=== PATIENT | female | born 1990 | race Caucasian/White ===

== ENCOUNTER 2017-06-18 17:21 | Emergency (ER) | payer MEDICAID ==
[2017-06-18 17:43] VITALS: BP 117/93
--- NOTE | 2017-06-18 18:09 | EDM.PDOC ---
ED HPI GENERAL MEDICAL PROBLEM - General Chief Complaint: Cardiovascular Problem Stated Complaint: HIGH BLOOD SUGAR/CHEST PAIN Time Seen by Provider: 06/18/17 17:34 Source of Information: Reports: Patient, RN Notes Reviewed History Limitations: Reports: No Limitations - History of Present Illness INITIAL COMMENTS - FREE TEXT/NARRATIVE: The patient states that she has been experiencing episodes of lightheadedness, sharp chest pain, shortness of breath, whole-body tingling, palpitations, and nausea and vomiting. The episodes last approximately 2 minutes, and she will have 5-6 episodes per day, over the past 3 or 4 days. At present, she is asymptomatic. The patient reports that she has a history of diabetes and depression/anxiety, but that she has not taken any medications for the past 2 months. She is concerned that her symptoms are due to hyperglycemia. The patient's PCP is Martha Main, whom the patient last saw about 2 months ago, however, the patient states that she is looking to change providers. 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 Psychiatric History: Reports: Anxiety, Depression Endocrine/Metabolic History: Reports: Diabetes, Type II - Past Surgical History HEENT Surgical History: Reports: Oral Surgery ([place] teeth extraction) Female Surgical History: Reports: Section (x 1) Social & Family History - Family History Family Medical History: Noncontributory - Tobacco Use Smoking Status *Q: Current Every Day Smoker Years of Tobacco use: 10 Packs/Tins Daily: 0.1 - Alcohol Use Alcohol Use History: Yes Alcohol Use Frequency: Rarely - Recreational Drug Use Recreational Drug Use: No - Living Situation & Occupation Living situation: Reports: (), with Family Occupation: Unemployed ED ROS GENERAL - Review of Systems Review Of Systems: See Below Constitutional: Reports: No Symptoms HEENT: Reports: No Symptoms Respiratory: Reports: Cough Cardiovascular: Reports: No Symptoms Endocrine: Reports: No Symptoms GI/Abdominal: Reports: No Symptoms : Reports: No Symptoms Musculoskeletal: Reports: No Symptoms Skin: Reports: No Symptoms Neurological: Reports: No Symptoms Psychiatric: Reports: No Symptoms Hematologic/Lymphatic: Reports: No Symptoms Immunologic: Reports: No Symptoms ED EXAM, GENERAL - Physical Exam Exam: See Below Exam Limited By: No Limitations General Appearance: Alert, WD/WN, No Apparent Distress Eye Exam: Bilateral Eye: Normal Inspection Ears: Normal External Exam, Hearing Grossly Normal Nose: Normal Inspection, No Blood Throat/Mouth: Normal Inspection, Normal Lips, Normal Voice, No Airway Compromise Head: Atraumatic, Normocephalic Neck: Normal Inspection, Full Range of Motion Respiratory/Chest: No Respiratory Distress, Lungs Clear, Normal Breath Sounds, No Accessory Muscle Use Cardiovascular: Normal Peripheral Pulses, Regular Rate, Rhythm, No Gallop, No JVD, No Murmur, No Rub Peripheral Pulses: 4+: Radial (L), Radial (R) GI/Abdominal: Normal Bowel Sounds, Soft, Non-Tender, No Organomegaly, No Distention, No Abnormal Bruit, No Mass (Female) Exam: Deferred Rectal (Female) Exam: Deferred Back Exam: Normal Inspection, Full Range of Motion, NT Extremities: Normal Inspection, Normal Range of Motion, No Pedal Edema, Normal Capillary Refill Neurological: Alert, Oriented, Normal Cognition, No Motor/Sensory Deficits Psychiatric: Normal Affect Skin Exam: Warm, Dry, Intact, Normal Color, No Rash Lymphatic: No Adenopathy Course - Vital Signs Last Recorded V/S: Last Vital Signs Temp 36.4 C 06/18/17 17:33 Pulse 109 H 06/18/17 17:33 Resp 29 H 06/18/17 17:33 BP 117/93 H 06/18/17 17:33 Pulse Ox 96 06/18/17 17:33 - Orders/Labs/Meds Labs: Laboratory Tests 06/18/17 Range/Units 17:37 POC Glucose 286 H (70-105) mg/dL - Re-Assessments/Exams Free Text/Narrative Re-Assessment/Exam: 06/18/17 18:02 By history, the patient's symptoms are consistent with intermittent hyperventilation syndrome, however, the patient is asymptomatic at this time. The patient was under the impression that her symptoms were due to hyperglycemia , however, she states that her blood sugar usually runs in the high 200s (Accu- Chek in the ED was 286), therefore it is highly unlikely that this is responsible for her symptoms. Additionally, the patient has been told in the past that her symptoms are due to diabetic neuropathy, however, the description and intermittent nature of her symptoms, along with the relatively short duration of her diabetes, speak against this. I offered to perform a workup to make sure that there was no other etiology, such as a PE, however, the patient declined. The patient has not taken any of her medications, including diabetes and depression/anxiety medications, for the past 2 months, which would increase the likelihood of the patient having hyperventilation syndrome. I offered to prescribe some metformin for her, until she is able to fill her current prescriptions, however, the patient declined that, as well. I will refer her to Dr. Walsh. Departure - Departure Time of Disposition: 18:06 Disposition: Home, Self-Care 01 Condition: Good Clinical Impression: Hyperventilation syndrome, Hyperglycemia due to type 2 diabetes mellitus Instructions: Hyperventilation, Hyperglycemia, [id number] Referrals: Moses Walsh [Physician] - Forms: ED Department Discharge Additional Instructions: You were seen in the emergency room for intermittent symptoms of lightheadedness , chest pain, shortness of breath, whole-body tingling, palpitations, nausea, and vomiting. As you were not having any symptoms while in the ED, a diagnosis is difficult to make, however, your symptoms are MOST LIKELY due to hyperventilation syndrome related to your not having taken your anxiety medications for the past couple of months. Your blood sugar was found to be 286 in the ER. We recommend you follow-up with Dr. Walsh in the clinic for further evaluation and treatment. If any other problems, please do not hesitate to return to the ER.
== END 2017-06-18 18:25 | disposition home or self-care (01) ==
LOC: JD.ED 17:21
DX: F45.8 Other somatoform disorders (principal); E11.65 Type 2 diabetes mellitus with hyperglycemia; F41.9 Anxiety disorder, unspecified; F32.9 Major depressive disorder, single episode, unspecified; E11.9 Type 2 diabetes mellitus without complications; F17.210 Nicotine dependence, cigarettes, uncomplicated; Z79.899 Other long term (current) drug therapy
CPT/HCPCS: 82962; 99283; 99284

== ENCOUNTER 2017-09-11 17:58 | Emergency (ER) | payer MEDICAID ==
[2017-09-11 19:09] VITALS: BP 124/92
--- NOTE | 2017-09-11 19:17 | EDM.PDOC ---
ED HPI GENERAL MEDICAL PROBLEM - General Chief Complaint: Diabetic Complaint Stated Complaint: POSS STAPH INFECTION Time Seen by Provider: 09/11/17 19:17 Source of Information: Reports: Patient History Limitations: Reports: No Limitations - History of Present Illness INITIAL COMMENTS - FREE TEXT/NARRATIVE: Patient is a 26-year-old female who presents to the ED complaining of numerous complaints at this time. This includes #1 boil to the right buttocks size of a walnut that is progressively getting bigger in size. 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 In addition she's been complaining of elevated blood sugars in the 500s. She is a type 2 diabetic on metformin thousand milligrams 3 times a day. Patient reports taking it 2 times a day since it makes her feel sick. She does have some history of diarrhea with taking this medication. States last night also started passing some large blood clots from her vagina. States there has been about 6 large ones. She did change her tampon every half hour to 45 minutes. She is mildly dizzy, dry mouth, experiencing some mild abdominal cramping to the right lower and periumbilical region. She denies being but notes her menstrual cycle has been irregular with not taking the Cozaar or insulin. Due to insurance issues she has not been on Victoza or any type of insulin. Denies any fever, chest pain, shows breath, dysuria, presyncope/syncopal episodes, or any additional complaints. Abdomen Pain Score (Numeric/FACES): 7 right buttock Pain Score (Numeric/FACES): 4 - Related Data Allergies Allergy/AdvReac Type Severity Reaction Status Date / Time No Known Allergies Allergy Verified 06/18/17 17:43 Home Meds: Home Meds Blood Sugar Diagnostic [Glucose Test Strip] 1 each MC BID #20 strip 03/11/16 [Rx ] LORazepam [Ativan] 0.5 mg PO DAILY 06/18/17 [History] PARoxetine [Paxil] 20 mg PO DAILY 06/18/17 [History] Acetaminophen/HYDROcodone [[place] 325-5 MG] 1 tab PO Q6H PRN #6 tablet 09/11/17 [ Rx] Doxycycline [Vibramycin] 100 mg PO BID #20 cap 09/11/17 [Rx] Insulin Glarg,Human.Rec.Analog [LantUS Solostar] 15 units SUBCUT DAILY #1 pen [Rx] metFORMIN [Glucophage XR] 1,000 mg PO BID 09/11/17 [History] metroNIDAZOLE [Flagyl] 500 mg PO TID 09/11/17 [History] Past Medical History - Past Health History Medical/Surgical History: Denies 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: Psychiatric History: Reports: Anxiety, Depression Endocrine/Metabolic History: Reports: Diabetes, Type II Other Endocrine/Metabolic History: seen in ED yesterday for High blood glucose Dermatologic History: Reports: Other (See Below) Other Dermatologic History: boils/cysts - Infectious Disease History Infectious Disease History: Reports: MRSA - Past Surgical History HEENT Surgical History: Reports: Oral Surgery Female Surgical History: Reports: Section Social & Family History - Family History Family Medical History: Noncontributory - Tobacco Use Smoking Status *Q: Current Every Day Smoker Years of Tobacco use: 10 Packs/Tins Daily: 0.2 Used Tobacco, but Quit: No Second Hand Smoke Exposure: No - Caffeine Use Caffeine Use: Reports: Soda Other Caffeine Use: uses diet soda - Recreational Drug Use Recreational Drug Use: No - Living Situation & Occupation Living situation: Reports: (), with Family Occupation: Unemployed ED ROS GENERAL - Review of Systems Review Of Systems: ROS reveals no pertinent complaints other than HPI. ED EXAM GENERAL NO PERIP PULSE - Physical Exam Exam: See Below Exam Limited By: No Limitations General Appearance: Alert, WD/WN, No Apparent Distress Ears: Hearing Grossly Normal Nose: Normal Inspection Throat/Mouth: Normal Voice, No Airway Compromise, Other (Mouth is dry) Head: Atraumatic, Normocephalic Neck: Normal Inspection, Supple Respiratory/Chest: No Respiratory Distress, Lungs Clear, Normal Breath Sounds, No Accessory Muscle Use Cardiovascular: Normal Peripheral Pulses, Regular Rate, Rhythm GI/Abdominal: Normal Bowel Sounds, Soft, No Organomegaly, No Distention, Tender (To the periumbilical region. Negative Ortega and McBurney sign.) Extremities: Normal Inspection, Non-Tender, No Pedal Edema, Normal Capillary Refill Neurological: Alert, Oriented, CN II-XII Intact, No Motor/Sensory Deficits Psychiatric: Normal Affect, Normal Mood Skin Exam: Warm, Dry, Other (Approximate 3 cm x 2 and half centimeter boil to the right Botox cheek with pain on palpation or increased warmth noted. No drainage present.) ED I&D PROCEDURES - I&D Site: Right buttocks 3 cm x 2.5 cm indurated area Skin prep: Sterile Drape Local anesthesia - Lidocaine (Xylocaine): 1% Plain (6 mL) Area Incised With: 11 Blade Drainage: Bloody, Small Amount Probed to Break Up Loculations: Yes Packed With: None Sterile Dressinx4(s) Complications: No Course - Vital Signs Last Recorded V/S: Last Vital Signs Temp 98.8 F 09/11/17 19:07 Pulse 104 H 09/11/17 19:07 Resp 20 09/11/17 19:07 BP 124/92 H 09/11/17 19:07 Pulse Ox 96 09/11/17 19:07 - Orders/Labs/Meds Labs: Laboratory Tests 09/11/17 09/11/17 09/11/17 Range/Units 20:00 20:10 20:10 WBC 12.50 H (3.98-10.04) K/mm3 RBC 5.27 H (3.98-5.22) M/mm3 Hgb 14.3 (11.2-15.7) gm/L Hct 41.2 (34.1-44.9) % MCV 78.2 L (79.4-94.8) fl MCH 27.1 (25.6-32.2) pg MCHC 34.7 (32.2-35.5) g/dl RDW Std Deviation 37.8 (36.4-46.3) fL Plt Count 207 (182-369) K/mm3 MPV 11.7 (9.4-12.3) fl Neut % (Auto) 65.6 (34.0-71.1) % Lymph % (Auto) 27.6 (19.3-51.7) % [place] % (Auto) 5.3 (4.7-12.5) % Eos % (Auto) 1.1 (0.7-5.8) Baso % (Auto) 0.2 (0.1-1.2) % Neut # (Auto) 8.20 H (1.56-6.13) K/mm3 Lymph # (Auto) 3.45 (1.18-3.74) K/mm3 [place] # (Auto) 0.66 H (0.24-0.36) K/mm3 Eos # (Auto) 0.14 (0.04-0.36) K/mm3 Baso # (Auto) 0.02 (0.01-0.08) K/mm3 Sodium 134 L (136-145) mEq/L Potassium 3.5 (3.5-5.1) mEq/L Chloride 101 (98-107) mEq/L Carbon Dioxide 24 (21-32) mEq/L Anion Gap 12.5 (5-15) BUN 7 (7-18) mg/dL Creatinine 0.8 (0.55-1.02) mg/dL Est Cr Clr Drug Dosing 113.21 mL/min Estimated GFR (MDRD) > 60 (>60) mL/min BUN/Creatinine Ratio 8.8 L (14-18) Glucose 334 H (74-106) mg/dL POC Glucose 335 H (70-105) mg/dL Calcium 9.1 (8.5-10.1) mg/dL Total Bilirubin 0.5 (0.2-1.0) mg/dL AST 10 L (15-37) U/L ALT 19 (14-59) U/L Alkaline Phosphatase 111 (46-116) U/L C-Reactive Protein 6.4 H* (<1.0) mg/dL Total Protein 7.7 (6.4-8.2) g/dl Albumin 3.5 (3.4-5.0) g/dl Globulin 4.2 gm/dL Albumin/Globulin Ratio 0.8 L (1-2) TSH 3rd Generation 0.938 (0.358-3.74) uIU/mL HCG, Qual (NEGATIVE) Urine Color (Yellow) Urine Appearance (Clear) Urine pH (5.0-8.0) Ur Specific [place] (1.005-1.030) Urine Protein (Negative) Urine Glucose (UA) (Negative) Urine Ketones (Negative) Urine Occult Blood (Negative) Urine Nitrite (Negative) Urine Bilirubin (Negative) Urine Urobilinogen (0.2-1.0) Ur Leukocyte Esterase (Negative) Urine RBC (0-5) /hpf Urine WBC (0-5) /hpf Ur Epithelial Cells (0-5) /hpf Urine Bacteria (FEW) /hpf Urine Mucus (FEW) /hpf Blood Type 09/11/17 09/11/17 09/11/17 Range/Units 20:10 20:10 22:35 WBC (3.98-10.04) K/mm3 RBC (3.98-5.22) M/mm3 Hgb (11.2-15.7) gm/L Hct (34.1-44.9) % MCV (79.4-94.8) fl MCH (25.6-32.2) pg MCHC (32.2-35.5) g/dl RDW Std Deviation (36.4-46.3) fL Plt Count (182-369) K/mm3 MPV (9.4-12.3) fl Neut % (Auto) (34.0-71.1) % Lymph % (Auto) (19.3-51.7) % [place] % (Auto) (4.7-12.5) % Eos % (Auto) (0.7-5.8) Baso % (Auto) (0.1-1.2) % Neut # (Auto) (1.56-6.13) K/mm3 Lymph # (Auto) (1.18-3.74) K/mm3 [place] # (Auto) (0.24-0.36) K/mm3 Eos # (Auto) (0.04-0.36) K/mm3 Baso # (Auto) (0.01-0.08) K/mm3 Sodium (136-145) mEq/L Potassium (3.5-5.1) mEq/L Chloride (98-107) mEq/L Carbon Dioxide (21-32) mEq/L Anion Gap (5-15) BUN (7-18) mg/dL Creatinine (0.55-1.02) mg/dL Est Cr Clr Drug Dosing mL/min Estimated GFR (MDRD) (>60) mL/min BUN/Creatinine Ratio (14-18) Glucose (74-106) mg/dL POC Glucose (70-105) mg/dL Calcium (8.5-10.1) mg/dL Total Bilirubin (0.2-1.0) mg/dL AST (15-37) U/L ALT (14-59) U/L Alkaline Phosphatase (46-116) U/L C-Reactive Protein (<1.0) mg/dL Total Protein (6.4-8.2) g/dl Albumin (3.4-5.0) g/dl Globulin gm/dL Albumin/Globulin Ratio (1-2) TSH 3rd Generation (0.358-3.74) uIU/mL HCG, Qual Negative (NEGATIVE) Urine Color Light yellow (Yellow) Urine Appearance Slt cloudy H (Clear) Urine pH 5.5 (5.0-8.0) Ur Specific [place] 1.025 (1.005-1.030) Urine Protein Negative (Negative) Urine Glucose (UA) 2+ H (Negative) Urine Ketones 1+ H (Negative) Urine Occult Blood Trace-lysed H (Negative) Urine Nitrite Negative (Negative) Urine Bilirubin Negative (Negative) Urine Urobilinogen 0.2 (0.2-1.0) Ur Leukocyte Esterase Negative (Negative) Urine RBC 0-5 (0-5) /hpf Urine WBC 0-5 (0-5) /hpf Ur Epithelial Cells 0-5 (0-5) /hpf Urine Bacteria Few (FEW) /hpf Urine Mucus Not seen (FEW) /hpf Blood Type A POSITIVE Meds: Medications Discontinued Medications Generic Name Dose Route Start Last Admin Trade Name Freq PRN Reason Stop Dose Admin Doxycycline Hyclate 200 mg 09/11/17 22:50 09/11/17 23:30 Vibramycin PO 09/11/17 22:51 Not Given ONETIME ONE Hydromorphone HCl 0.5 mg 09/11/17 19:43 09/11/17 20:06 Dilaudid IVPUSH 09/11/17 19:44 0.5 mg ONETIME ONE Administration Sodium Chloride 2,000 mls @ 999 mls/hr 09/11/17 19:43 09/11/17 20:05 Normal Saline IV 09/11/17 21:43 999 mls/hr ONETIME ONE Administration Lidocaine HCl 10 ml 09/11/17 19:43 09/11/17 20:06 Xylocaine 1% INJECT 09/11/17 19:44 10 ml ONETIME ONE Administration Ondansetron HCl 4 mg 09/11/17 19:43 09/11/17 20:06 Zofran IVPUSH 09/11/17 19:44 4 mg ONETIME ONE Administration Sodium Chloride 10 ml 09/11/17 19:20 09/11/17 20:00 Saline Flush FLUSH 10 ml ASDIRECTED PRN Administration Keep Vein Open - Re-Assessments/Exams Free Text/Narrative Re-Assessment/Exam: IV established with normal saline 999 mils per hour, Dilaudid 0.5 mg IVP, and Zofran 4 mg IVP. Initial labs and studies include CBC, chem 14, hCG, TSH, UA, CRP, ABO type and screen, and orthostatic vitals. 09/11/17 20:13 BS 335 Labs reviewed: NA 134, k 3.5, AG 12.5, Cr 0.8, glucose 334, CRP 6.4, TSH 0.938, HCG neg, WBC 12.5, HGB 14.3, platelet count 207, neutrophil percentage is 65.6, neutrophil number is 8.20. HCG negative. UA has not been collected yet. Per patient vaginal bleeding has resolved. 221 Abscess to the right buttocks I&D with no complications. Cultures for both aerobic and anaerobic obtained. Ordered doxycycline 200mg PO. Patient requesting prescription for lantus 15 units at . Patient states she has insurance and PCP has not prescribed LA/SA. She states PCP is waiting 3 months with only metformin used so victoza will be covered. Patient states she is feeling better with the IV fluids. She is ready be discharged home. Abdominal discomfort has subsided. UA results are pending. Will discharge patient home with instructions as documented. She'll be notified if UTI present. 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 supervisor insulin use: without ferry terminal supervisor use Qualified Code(s): E11.628 - Type 2 diabetes mellitus with other skin complications Diabetes type 2, uncontrolled Qualifiers: Diabetes mellitus complication status: without complication Diabetes mellitus halfway insulin use: without ferry terminal supervisor use Qualified Code(s): E11.65 - Type 2 diabetes mellitus with hyperglycemia - Discharge Information Prescriptions: Acetaminophen/HYDROcodone [[place] 325-5 MG] 1 tab PO Q6H PRN #6 tablet PRN Reason: Pain (Severe 7-10) Doxycycline [Vibramycin] 100 mg PO BID #20 cap Insulin Glarg,Human.Rec.Analog [LantUS Solostar] 15 units SUBCUT DAILY #1 pen Instructions: Type 2 Diabetes Mellitus, Adult, [id number] Referrals: Moses Walsh [Physician] - Forms: ED Department Discharge Additional Instructions: As discussed cultures of the wound have been obtained. Will have you take doxycycline 100 mg twice a day for 10 days.You will be notified if the bacteria growing is not susceptible to the antibiotic currently on. Cleanse site twice daily with soap and water, pat dry, reapply dressing. If dressing becomes saturated change it. Wound will have to heal by secondary intentions. That is from the inside out. Take Tylenol and ibuprofen in alternating fashion for pain. For severe pain take [place] one tab every 6 [address] as needed[address] Do not drive while taking the [place]. Blood sugars were in the 300s upon evaluation to the ED. As known your blood sugars are not well controlled. Continue taking the metformin as prescribed. Will also add Lantus 15 units at at bedtime. Monitor blood sugars 4 times a day keeping a daily log. Eat a diabetic friendly diet. Push the fluids. In relation to the vaginal bleeding you're experiencing that has since resolved continue to monitor if you experience worsening bleeding with dizziness or pain please return back to ED. Follow-up with a primary care provider at [facility] and [place] for further evaluation and treatment the first part of this week. Call and make an appt.
[2017-09-11] MEDS ORDERED: Sodium Chloride 0.9% 10 ML Syringe FLUSH PRN (19:20)
[2017-09-11] MEDS ORDERED: Sodium Chloride 0.9% 2,000 ML IV ONE (19:43)
[2017-09-11] MEDS ORDERED: Ondansetron 4 MG/2 ML SDV IVPUSH ONE (19:43)
[2017-09-11] MEDS ORDERED: Lidocaine 1% 10 ML MDV INJECT ONE (19:43)
[2017-09-11] MEDS ORDERED: HYDROmorphone 0.5 MG/0.5 ML Syringe IVPUSH ONE (19:43)
[2017-09-11] MEDS ORDERED: Doxycycline 100 MG Cap PO ONE (22:50)
== END 2017-09-11 23:20 | disposition home or self-care (01) ==
LOC: JD.ED 17:58
DX: L02.31 Cutaneous abscess of buttock (principal); E11.65 Type 2 diabetes mellitus with hyperglycemia; E11.628 Type 2 diabetes mellitus with other skin complications; F17.210 Nicotine dependence, cigarettes, uncomplicated; Z79.4 Long term (current) use of insulin; Z79.84 Long term (current) use of oral hypoglycemic drugs; Z79.899 Other long term (current) drug therapy
CPT/HCPCS: 10060; 36415; 80053; 81001; 82962; 84443; 84703; 85025; 86140; 86900; 86901; 87075; 87077; 87186; 87205; 96361; 96374; 96375; 99284; J1170; J2405; J7040; J7050; 87070

== ENCOUNTER 2017-12-06 13:27 | Emergency (ER) | payer MEDICAID ==
[2017-12-06 13:43] VITALS: BP 119/68
[2017-12-06] MEDS ORDERED: Oxymetazoline 0.05% Nasal Spray 15 ML Bottle NAS ONE (14:37)
[2017-12-06] MEDS ORDERED: Sodium Chloride 0.9% 1,000 ML IV ONE (14:37)
[2017-12-06] MEDS ORDERED: Sodium Chloride 0.9% 10 ML Syringe FLUSH PRN (14:37)
--- NOTE | 2017-12-06 14:41 | EDM.PDOC ---
ED HPI GENERAL MEDICAL PROBLEM - General Chief Complaint: Respiratory Problem Stated Complaint: HIGH BLOOD SUGAR/FLU SYMPTOMS/TINGLING IN R HAND Time Seen by Provider: 12/06/17 14:18 Source of Information: Reports: Patient History Limitations: Reports: No Limitations - History of Present Illness INITIAL COMMENTS - FREE TEXT/NARRATIVE: Patient is a 26-year-old female with a history of type 2 diabetes who presents ED complaining of generalized body aches, sore throat, left ear pain, sinus congestion, poor appetite, and tactile fever. She also complains of some mild dysuria as well. Blood sugars this a.m. were checked indicating 350. Upon arrival to the ED blood sugar was 260. States normally her blood sugars are 120 to 140s. She has not eaten anything that may contribute to elevated blood sugar. She does complain of some increased thirst, dry mouth, and frequent increased frequency urination. No documented sick exposure as of recent. She is concerned she may have influenza or strep throat. She denies any fever at this time, abdominal pain, chest pain, shortness of breath, there is a slight cough described as being mildly productive, no new rash, or any additional complaints. Generalized Pain Score (Numeric/FACES): 5 - Related Data Allergies Allergy/AdvReac Type Severity Reaction Status Date / Time No Known Allergies Allergy Verified 12/06/17 13:43 Home Meds: Home Meds Blood Sugar Diagnostic [Glucose Test Strip] 1 each MC BID #20 strip 03/11/16 [Rx ] LORazepam [Ativan] 0.5 mg PO DAILY 06/18/17 [History] PARoxetine [Paxil] 20 mg PO DAILY 06/18/17 [History] Acetaminophen/HYDROcodone [[place] 325-5 MG] 1 tab PO Q6H PRN #6 tablet 09/11/17 [ Rx] Doxycycline [Vibramycin] 100 mg PO BID #20 cap 09/11/17 [Rx] Insulin Glarg,Human.Rec.Analog [LantUS Solostar] 15 units SUBCUT DAILY #1 pen [Rx] metFORMIN [Glucophage XR] 1,000 mg PO BID 09/11/17 [History] metroNIDAZOLE [Flagyl] 500 mg PO TID 09/11/17 [History] Nitrofurantoin Monohyd/M-Cryst [Macrobid 100 mg Capsule] 100 mg PO BID #14 capsule 12/06/17 [Rx] Past Medical History - Past Health History Medical/Surgical History: Denies 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/Surgical History 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: Psychiatric History: Reports: Anxiety, Depression Endocrine/Metabolic History: Reports: Diabetes, Type II Other Endocrine/Metabolic History: seen in ED yesterday for High blood glucose Dermatologic History: Reports: Other (See Below) Other Dermatologic History: boils/cysts - Infectious Disease History Infectious Disease History: Reports: MRSA - Past Surgical History HEENT Surgical History: Reports: Oral Surgery Female Surgical History: Reports: Section Social & Family History - Family History Family Medical History: Noncontributory - Tobacco Use Smoking Status *Q: Current Some Day Smoker Years of Tobacco use: 10 Packs/Tins Daily: 0.2 Used Tobacco, but Quit: No Second Hand Smoke Exposure: No - Caffeine Use Caffeine Use: Reports: Soda Other Caffeine Use: uses diet soda - Recreational Drug Use Recreational Drug Use: No - Living Situation & Occupation Living situation: Reports: (), with Family Occupation: Unemployed ED ROS GENERAL - Review of Systems Review Of Systems: ROS reveals no pertinent complaints other than HPI. ED EXAM, GENERAL - Physical Exam Exam: See Below Exam Limited By: No Limitations General Appearance: Alert, WD/WN, Mild Distress Eye Exam: Bilateral Eye: PERRL Ears: Normal External Exam, Normal Canal, Hearing Grossly Normal, Normal TMs Nose: Normal Inspection Throat/Mouth: Normal Inspection, Normal Oropharynx, Normal Voice, No Airway Compromise Neck: Normal Inspection, Supple, Non-Tender, Full Range of Motion. No: Lymphadenopathy (L), Lymphadenopathy (R) Respiratory/Chest: No Respiratory Distress, Lungs Clear, Normal Breath Sounds, No Accessory Muscle Use, Chest Non-Tender Cardiovascular: Normal Peripheral Pulses, Regular Rate, Rhythm, No Murmur Peripheral Pulses: 3+: Radial (R) GI/Abdominal: Normal Bowel Sounds, Soft, Non-Tender, No Organomegaly, No Distention Back Exam: Normal Inspection Extremities: Normal Inspection Neurological: Alert, Oriented, CN II-XII Intact, Normal Cognition, No Motor/ Sensory Deficits Psychiatric: Normal Affect, Normal Mood Skin Exam: Warm, Dry, Intact, Normal Color, No Rash Course - Vital Signs Last Recorded V/S: Last Vital Signs Temp 97.4 F 12/06/17 13:39 Pulse 89 12/06/17 13:39 Resp 16 12/06/17 13:39 BP 119/68 12/06/17 13:39 Pulse Ox 99 12/06/17 13:39 - Orders/Labs/Meds Orders: Active Orders 24 hr Category Date Time Status Peripheral IV Care [RC] . DIRECTED Care 12/06/17 14:37 Active CULTURE STREP A CONFIRMATION [] Stat Lab 12/06/17 14:50 Results CULTURE URINE [] Stat Lab 12/06/17 16:00 Received STREP SCRN A RAPID W CULT CONF [] Stat Lab 12/06/17 14:50 Results Peripheral IV Insertion Adult [OM.PC] Stat Oth 12/06/17 14:36 Ordered Labs: Laboratory Tests 12/06/17 12/06/17 12/06/17 Range/Units 13:50 15:04 15:04 WBC 7.07 (3.98-10.04) K/mm3 RBC 5.30 H (3.98-5.22) M/mm3 Hgb 13.8 (11.2-15.7) gm/L Hct 41.6 (34.1-44.9) % MCV 78.5 L (79.4-94.8) fl MCH 26.0 (25.6-32.2) pg MCHC 33.2 (32.2-35.5) g/dl RDW Std Deviation 38.0 (36.4-46.3) fL Plt Count 199 (182-369) K/mm3 MPV 11.4 (9.4-12.3) fl Neut % (Auto) 59.3 (34.0-71.1) % Lymph % (Auto) 30.7 (19.3-51.7) % [place] % (Auto) 7.8 (4.7-12.5) % Eos % (Auto) 2.0 (0.7-5.8) Baso % (Auto) 0.1 (0.1-1.2) % Neut # (Auto) 4.19 (1.56-6.13) K/mm3 Lymph # (Auto) 2.17 (1.18-3.74) K/mm3 [place] # (Auto) 0.55 H (0.24-0.36) K/mm3 Eos # (Auto) 0.14 (0.04-0.36) K/mm3 Baso # (Auto) 0.01 (0.01-0.08) K/mm3 Sodium 136 (136-145) mEq/L Potassium 3.8 (3.5-5.1) mEq/L Chloride 102 (98-107) mEq/L Carbon Dioxide 25 (21-32) mEq/L Anion Gap 12.8 (5-15) BUN 7 (7-18) mg/dL Creatinine 0.6 (0.55-1.02) mg/dL Est Cr Clr Drug Dosing 150.95 mL/min Estimated GFR (MDRD) > 60 (>60) mL/min BUN/Creatinine Ratio 11.7 L (14-18) Glucose 243 H (74-106) mg/dL POC Glucose 252 H (70-105) mg/dL Calcium 8.6 (8.5-10.1) mg/dL Total Bilirubin 0.4 (0.2-1.0) mg/dL AST 11 L (15-37) U/L ALT 22 (14-59) U/L Alkaline Phosphatase 97 (46-116) U/L C-Reactive Protein 2.5 H* (<1.0) mg/dL Total Protein 7.3 (6.4-8.2) g/dl Albumin 3.2 L (3.4-5.0) g/dl Globulin 4.1 gm/dL Albumin/Globulin Ratio 0.8 L (1-2) Urine Color (Yellow) Urine Appearance (Clear) Urine pH (5.0-8.0) Ur Specific [place] (1.005-1.030) Urine Protein (Negative) Urine Glucose (UA) (Negative) Urine Ketones (Negative) Urine Occult Blood (Negative) Urine Nitrite (Negative) Urine Bilirubin (Negative) Urine Urobilinogen (0.2-1.0) Ur Leukocyte Esterase (Negative) Urine RBC (0-5) /hpf Urine WBC (0-5) /hpf Ur Epithelial Cells (0-5) /hpf Urine Bacteria (FEW) /hpf Urine Mucus (FEW) /hpf 12/06/17 Range/Units 16:00 WBC (3.98-10.04) K/mm3 RBC (3.98-5.22) M/mm3 Hgb (11.2-15.7) gm/L Hct (34.1-44.9) % MCV (79.4-94.8) fl MCH (25.6-32.2) pg MCHC (32.2-35.5) g/dl RDW Std Deviation (36.4-46.3) fL Plt Count (182-369) K/mm3 MPV (9.4-12.3) fl Neut % (Auto) (34.0-71.1) % Lymph % (Auto) (19.3-51.7) % [place] % (Auto) (4.7-12.5) % Eos % (Auto) (0.7-5.8) Baso % (Auto) (0.1-1.2) % Neut # (Auto) (1.56-6.13) K/mm3 Lymph # (Auto) (1.18-3.74) K/mm3 [place] # (Auto) (0.24-0.36) K/mm3 Eos # (Auto) (0.04-0.36) K/mm3 Baso # (Auto) (0.01-0.08) K/mm3 Sodium (136-145) mEq/L Potassium (3.5-5.1) mEq/L Chloride (98-107) mEq/L Carbon Dioxide (21-32) mEq/L Anion Gap (5-15) BUN (7-18) mg/dL Creatinine (0.55-1.02) mg/dL Est Cr Clr Drug Dosing mL/min Estimated GFR (MDRD) (>60) mL/min BUN/Creatinine Ratio (14-18) Glucose (74-106) mg/dL POC Glucose (70-105) mg/dL Calcium (8.5-10.1) mg/dL Total Bilirubin (0.2-1.0) mg/dL AST (15-37) U/L ALT (14-59) U/L Alkaline Phosphatase (46-116) U/L C-Reactive Protein (<1.0) mg/dL Total Protein (6.4-8.2) g/dl Albumin (3.4-5.0) g/dl Globulin gm/dL Albumin/Globulin Ratio (1-2) Urine Color Yellow (Yellow) Urine Appearance Clear (Clear) Urine pH 7.0 (5.0-8.0) Ur Specific [place] > or = 1.030 (1.005-1.030) Urine Protein Trace H (Negative) Urine Glucose (UA) 2+ H (Negative) Urine Ketones Trace H (Negative) Urine Occult Blood Negative (Negative) Urine Nitrite Negative (Negative) Urine Bilirubin Negative (Negative) Urine Urobilinogen 0.2 (0.2-1.0) Ur Leukocyte Esterase Negative (Negative) Urine RBC 0-5 (0-5) /hpf Urine WBC 10-20 H (0-5) /hpf Ur Epithelial Cells 5-10 H (0-5) /hpf Urine Bacteria Moderate H (FEW) /hpf Urine Mucus Few (FEW) /hpf Meds: Medications Discontinued Medications Generic Name Dose Route Start Last Admin Trade Name Freq PRN Reason Stop Dose Admin Sodium Chloride 1,000 mls @ 999 mls/hr 12/06/17 14:37 12/06/17 14:51 Normal Saline IV 12/06/17 15:37 999 mls/hr ONETIME ONE Administration Nitrofurantoin Macrocrystals 100 mg 12/06/17 16:54 12/06/17 17:04 Macrobid PO 12/06/17 16:55 100 mg ONETIME ONE Administration Oxymetazoline HCl 1 ml 12/06/17 14:37 12/06/17 14:51 Afrin Original 0.05% Nasal [place] TARSHA 12/06/17 14:38 1 ml ONETIME ONE Administration Sodium Chloride 10 ml 12/06/17 14:37 12/06/17 14:52 Saline Flush FLUSH 10 ml ASDIRECTED PRN Administration Keep Vein Open - Re-Assessments/Exams Free Text/Narrative Re-Assessment/Exam: Will obtain a peripheral IV with normal saline 999 mls per hour. In addition patient has significant sinus congestion thus ordered Afrin 1 spray to each nare. Initial labs will include CBC, chem 14, CRP, UA, influenza screen, strep screen , and chest x-ray two-view. Chest x-ray reviewed with Dr. Sorto. No acute findings noted. Strep and influenza screen were both negative. Labs reviewed: Electrolytes within normal limits. Glucose 243. CRP 2.5. Creatinine 0.6. CBC was essentially normal. UA came back trace protein, glucose 2+, trace ketones, urine wbc's 10-20, epithelial cells 5-10, moderate bacteria. Negative nitrates, leukocyte [place], and mucus. Will go ahead and treat the patient for UTI with history of dysuria. Ordered macrobid 100mg PO. Urine culture ordered. Patient also has a viral upper respiratory infection thus symptomatic treatment is required. In addition patient has hyperglycemia with recent infection which is fairly typical. Will discharge patient home with instructions as documented. Departure - Departure Time of Disposition: 15:35 Disposition: Home, Self-Care 01 Condition: Good Clinical Impression: Viral upper respiratory tract infection with cough Hyperglycemia due to type 2 diabetes mellitus Qualifiers: Diabetes mellitus prison insulin use: without prison use Qualified Code(s ): E11.65 - Type 2 diabetes mellitus with hyperglycemia UTI (urinary tract infection) Qualifiers: Urinary tract infection type: site unspecified Hematuria presence: without hematuria Qualified Code(s): N39.0 - Urinary tract infection, site not specified - Discharge Information Prescriptions: Nitrofurantoin Monohyd/M-Cryst [Macrobid 100 mg Capsule] 100 mg PO BID #14 capsule Instructions: Upper Respiratory Infection, Adult, [id number] Referrals: Martha Main PA-C [Primary Care Provider] - Forms: ED Department Discharge, ED Return to Work/School Form Additional Instructions: UA revealed findings concerning for urinary tract infection. Urine culture has been obtained. Will have you take Macrobid one tablet twice a day for 7 days. In addition you have a viral upper respiratory infection that will resolve over the next few days on its own accord. Treatment at this point may use Tylenol and ibuprofen in alternating fashion for pain or fever. Push the fluids. May use Flonase 1 spray to each nare twice a day as well nasal saline spray as needed. Ensure adequate rest. Blood sugars were 246 upon admission to the ED. This is fairly normal with infection to be increased with her history. Continue taking all your home medications as prescribed. Ensure adequate hydration. Follow-up with PCP first part of next week for reevaluation. Return to the ED if you develop any new or worsening symptoms. Continue to monitor her blood sugars. - My Orders Last 24 Hours: My Active Orders 12/06/17 14:36 Peripheral IV Insertion Adult [OM.PC] Stat 12/06/17 14:37 Peripheral IV Care [RC] . DIRECTED 12/06/17 14:50 CULTURE STREP A CONFIRMATION [RM] Stat STREP SCRN A RAPID W CULT CONF [RM] Stat 12/06/17 16:00 CULTURE URINE [RM] Stat - Assessment/Plan Last 24 Hours: My Active Orders 12/06/17 14:36 Peripheral IV Insertion Adult [OM.PC] Stat 12/06/17 14:37 Peripheral IV Care [RC] . DIRECTED 12/06/17 14:50 CULTURE STREP A CONFIRMATION [RM] Stat STREP SCRN A RAPID W CULT CONF [RM] Stat 12/06/17 16:00 CULTURE URINE [RM] Stat
--- NOTE | 2017-12-06 16:32 | CR ---
Chest: Two views of the chest were obtained. Comparison: No prior study. Heart size and mediastinum are normal. Lungs are clear. Bony structures are unremarkable. Impression: 1. Nothing acute is seen on two-view chest x-ray. Diagnostic code #1
[2017-12-06] MEDS ORDERED: Nitrofurantoin Monohydrate/Macrocrystalline 100 MG Cap PO ONE (16:54)
== END 2017-12-06 17:15 | disposition home or self-care (01) ==
LOC: JD.ED 13:27
DX: J06.9 Acute upper respiratory infection, unspecified (principal); E11.65 Type 2 diabetes mellitus with hyperglycemia; N39.0 Urinary tract infection, site not specified; E11.9 Type 2 diabetes mellitus without complications; F17.210 Nicotine dependence, cigarettes, uncomplicated; Z79.899 Other long term (current) drug therapy; Z79.4 Long term (current) use of insulin
CPT/HCPCS: 36415; 71046; 80053; 81001; 82962; 85025; 86140; 87081; 87086; 87430; 87804; 96360; 99284; A9270; J7040; J7050; 99283

== ENCOUNTER 2018-03-01 18:25 | Emergency (ER) | payer MEDICAID ==
[2018-03-01 19:00] VITALS: BP 136/74
--- NOTE | 2018-03-01 19:09 | EDM.PDOC ---
ED HPI GENERAL MEDICAL PROBLEM - General Chief Complaint: Genitourinary Problem Stated Complaint: POSS UTI Time Seen by Provider: 03/01/18 18:52 Source of Information: Reports: Patient History Limitations: Reports: No Limitations - History of Present Illness INITIAL COMMENTS - FREE TEXT/NARRATIVE: The patient states that she developed suprapubic pain, urinary urgency, and urinary frequency last night. She reports dysuria today. She also reports that she has had cloudy urine and occasional suprapubic pain for the past week. She has not tried any home remedies. She has had occasional nausea, but no recent fever, emesis, constipation, or diarrhea. She reports low back pain, but no flank pain. She reports similar symptoms in the past, but does not recall what the diagnosis was. The patient is sexually active. The patient is diabetic, and states that her usual blood glucoses are 150-200, but that over the past 2-3 weeks her blood sugars have been 300-500. She takes Lantus 20 units QHS, which she has not modified despite her elevated blood sugars. The patient's PCP is Martha Main, however, she states that she does not feel comfortable with Ms. Main, and does not want to follow-up with her. She was last seen about one year ago. 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 Para: 1 Psychiatric History: Reports: Anxiety, Depression Endocrine/Metabolic History: Reports: Diabetes, Type II, Obesity/BMI 30+ - Infectious Disease History Infectious Disease History: Reports: MRSA - Past Surgical History HEENT Surgical History: Reports: Oral Surgery ([place] teeth extraction) Female Surgical History: Reports: Section (x 1) Social & Family History - Family History Family Medical History: Noncontributory - Tobacco Use Smoking Status *Q: Current Every Day Smoker Years of Tobacco use: 13 Packs/Tins Daily: 0.3 - Caffeine Use Caffeine Use: Reports: Soda Other Caffeine Use: uses diet soda - Alcohol Use Alcohol Use History: Yes Alcohol Use Frequency: Socially - Recreational Drug Use Recreational Drug Use: No - Living Situation & Occupation Living situation: Reports: (), with Family (Son) 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 ED EXAM, RENAL/ - Physical Exam Exam: See Below Exam Limited By: No Limitations General Appearance: Alert, WD/WN, No Apparent Distress Eye Exam: Bilateral Eye: Normal Inspection Ears: Normal External Exam, Hearing Grossly Normal Nose: Normal Inspection, No Blood Throat/Mouth: Normal Inspection, Normal Lips, Normal Voice, No Airway Compromise Head: Atraumatic, Normocephalic Neck: Normal Inspection, Full Range of Motion Respiratory/Chest: No Respiratory Distress, Lungs Clear, Normal Breath Sounds, No Accessory Muscle Use Cardiovascular: Normal Peripheral Pulses, Regular Rate, Rhythm, No Gallop, No JVD, No Murmur, No Rub GI/Abdominal: Normal Bowel Sounds, Soft, No Organomegaly, No Distention, No Abnormal Bruit, No Mass, Tender (Suprapubic region only. Nontender elsewhere.), Other (Obese) (Female) Exam: Deferred Rectal (Female) Exam: Deferred Back Exam: Normal Inspection, Full Range of Motion. No: CVA Tenderness (L), CVA Tenderness (R) Extremities: Normal Inspection, Normal Range of Motion, No Pedal Edema, Normal Capillary Refill Neurological: Alert, Oriented, Normal Cognition, No Motor/Sensory Deficits Psychiatric: Normal Affect Skin Exam: Warm, Dry, Intact, Normal Color, No Rash Course - Vital Signs Last Recorded V/S: Last Vital Signs Temp 36.3 C 03/01/18 18:55 Pulse 98 03/01/18 18:55 Resp 16 03/01/18 18:55 BP 136/74 03/01/18 18:55 Pulse Ox 98 03/01/18 18:55 - Orders/Labs/Meds Orders: Active Orders 24 hr Category Date Time Status Accu Check [Blood Glucose Check, Bedside] [RC] ONETIME Care 03/01/18 19:03 Active CULTURE URINE [RM] Stat Lab 03/01/18 18:50 Received HCG QUALITATIVE,URINE [URCHEM] Stat Lab 03/01/18 19:10 Ordered UA W/MICROSCOPIC [URIN] Stat Lab 03/01/18 18:50 Ordered Labs: Laboratory Tests 03/01/18 03/01/18 03/01/18 Range/Units 18:50 19:10 19:14 POC Glucose 235 H (70-105) mg/dL Urine Color Yellow (Yellow) Urine Appearance Clear (Clear) Urine pH 5.5 (5.0-8.0) Ur Specific [place] > or = 1.030 (1.005-1.030) Urine Protein 2+ H (Negative) Urine Glucose (UA) 1+ H (Negative) Urine Ketones Trace H (Negative) Urine Occult Blood 2+ H (Negative) Urine Nitrite Negative (Negative) Urine Bilirubin Negative (Negative) Urine Urobilinogen 0.2 (0.2-1.0) Ur Leukocyte Esterase Trace H (Negative) Urine RBC 5-10 H (0-5) /hpf Urine WBC 50-75 H (0-5) /hpf Ur Epithelial Cells 0-5 (0-5) /hpf Urine Bacteria Moderate H (FEW) /hpf Urine Mucus Few (FEW) /hpf Urine HCG, Qual Negative (NEGATIVE) Meds: Medications Discontinued Medications Generic Name Dose Route Start Last Admin Trade Name Freq PRN Reason Stop Dose Admin Phenazopyridine HCl 95 mg 03/01/18 20:51 03/01/18 21:00 Urinary Pain Relief PO 03/01/18 20:52 95 mg ONETIME STA Administration Trimethoprim/Sulfamethoxazole 1 tab 03/01/18 20:39 03/01/18 20:44 Septra Ds PO 03/01/18 20:40 1 tab ONETIME ONE Administration - Re-Assessments/Exams Free Text/Narrative Re-Assessment/Exam: 03/01/18 20:41 The patient's urinalysis is consistent with a UTI. I have ordered a urine culture, Bactrim DS, and Pyridium. Departure - Departure Time of Disposition: 20:52 Disposition: Home, Self-Care 01 Condition: Good Clinical Impression: UTI (urinary tract infection) Qualifiers: Urinary tract infection type: site unspecified Hematuria presence: without hematuria Qualified Code(s): N39.0 - Urinary tract infection, site not specified - Discharge Information Prescriptions: Sulfamethoxazole/Trimethoprim [Bactrim Ds Tablet] 1 tab PO Q12H #7 tablet Instructions: Urinary Tract Infection, Adult, [id number] Referrals: Hannah Vázquez MD [Physician] - Forms: ED Department Discharge Additional Instructions: You were seen in the emergency room for lower abdominal pain, painful urination , urinary urgency, and urinary frequency. Workup in the ER included a urinalysis, a urine test, and an Accu- Chek. Your blood sugar returned elevated at 235. Your urinalysis is consistent with a urinary tract infection. A sample of your urine has been sent for culture. You have been started on the antibiotic Bactrim. A prescription for this [facility] been [facility], located in the [facility] across the [address] from the hospital. Take one tablet every 12 hours, starting tomorrow morning, 03/02/2018, as prescribed. Finish the entire prescription unless told otherwise by your doctor. You have been started on the UTI-pain medicine Pyridium. This medicine is available [id number] as "Azo". You may take a TOTAL of 6 doses, either one dose twice a day for 3 days or one dose 3 times a day for 2 days. This medicine will turn your urine orange - that is normal. Make sure that you stay adequately hydrated. It is important that you follow-up with Dr. Vázquez in the clinic on Wednesday, 2017, to check on your urine culture results, to make sure that you are on the right antibiotic. If any other problems, please do not hesitate to return to the ER. - My Orders Last 24 Hours: My Active Orders 03/01/18 18:50 CULTURE URINE [RM] Stat UA W/MICROSCOPIC [URIN] Stat 03/01/18 19:03 Accu Check [Blood Glucose Check, Bedside] [RC] ONETIME 03/01/18 19:10 HCG QUALITATIVE,URINE [URCHEM] Stat - Assessment/Plan Last 24 Hours: My Active Orders 03/01/18 18:50 CULTURE URINE [RM] Stat UA W/MICROSCOPIC [URIN] Stat 03/01/18 19:03 Accu Check [Blood Glucose Check, Bedside] [RC] ONETIME 03/01/18 19:10 HCG QUALITATIVE,URINE [URCHEM] Stat
[2018-03-01] MEDS ORDERED: Sulfamethoxazole/Trimethoprim 800-160 MG Tab PO ONE (20:39)
[2018-03-01] MEDS ORDERED: Phenazopyridine 95 MG Tab PO STA (20:51)
== END 2018-03-01 21:04 | disposition home or self-care (01) ==
LOC: JD.ED 18:25
DX: N39.0 Urinary tract infection, site not specified (principal); E11.9 Type 2 diabetes mellitus without complications; F17.210 Nicotine dependence, cigarettes, uncomplicated; Z79.899 Other long term (current) drug therapy; Z79.4 Long term (current) use of insulin
CPT/HCPCS: 81001; 81025; 82962; 87086; 87088; 87186; 99283; A9270

== ENCOUNTER 2019-04-04 05:33 | Inpatient (IN) | payer MEDICAID ==
[2019-04-04] MEDS ORDERED: Sodium Chloride 0.9% 10 ML Syringe FLUSH PRN (05:42)
[2019-04-04] MEDS ORDERED: Citric Acid/Sodium Citrate Solution 30 ML Cup PO ONE (05:42)
[2019-04-04] MEDS ORDERED: Metoclopramide 10 MG/2 ML SDV IVPUSH ONE (05:42)
[2019-04-04] MEDS ORDERED: ceFAZolin 2 GM in Premix Bag 1 BAG IV ONE (05:42)
[2019-04-04] MEDS ORDERED: Nalbuphine 20 MG/ML 1 ML Syringe IVPUSH PRN ×2 (05:42→09:11)
[2019-04-04] MEDS ORDERED: ceFAZolin 1 GM in Premix Bag 1 BAG IV ONE (05:42)
[2019-04-04] MEDS ORDERED: Lactated Ringers 1,000 ML IV SCH (05:45)
[2019-04-04] MEDS ORDERED: Oxytocin 10 Units/1 ML SDV ONE (07:16)
[2019-04-04] MEDS ORDERED: Morphine PF 10 MG/10 ML SDV ONE (07:16)
[2019-04-04] MEDS ORDERED: Ondansetron 4 MG/2 ML SDV ONE (07:16)
[2019-04-04] MEDS ORDERED: Ketorolac 30 MG/ML SDV ONE ×2 (07:16→09:36)
[2019-04-04] MEDS ORDERED: ceFAZolin 1 GM Vial ONE ×2 (07:16→08:08)
[2019-04-04] MEDS ORDERED: Lactated Ringers 2,000 ML ONE (07:16)
--- NOTE | 2019-04-04 07:29 | PCM.OPNOTE ---
- General Post-Op/Procedure Note Date of Surgery/Procedure: 04/04/19 Operative Procedure(s): Repeat with "T" extension Findings: Minimal scar tissue from prior present between rectus/fascia and also between bladder and RADHA. Baby boy in the vertex presentation with a large amount of meconium-stained amniotic fluid encountered. Thicker lower uterine segment. size and thicker lower uterine segment necessitating T extension of the hysterotomy. Baby boy with a weight of 10 pounds. True knot in umbilical cord. APGARS of 5 & 8. Normal appearance of the uterus, fallopian tubes, and ovaries. Pre Op Diagnosis: 37 2/7 weeks gestation. History of . Poorly controlled Type 2 DM Post-Op Diagnosis: Same Anesthesia Technique: Spinal Primary Surgeon: Liyah Bonds Secondary Surgeon: Carmelo Du Anesthesia Provider: Katy Griffith Reason Accounts Payable Technician Was Necessary: BMI of patient. Speed/safety of procedure Pathology: Cord blood collected. Placenta discarded. Fluid Replacement, Intraop: 1,700 Output, Urine Amount: 50 EBL in mLs: 800 Complications: None Condition: Good Free Text/Narrative:: The risks, benefits, indications, potential complications, and alternatives were explained to the patient and informed consent obtained. After induction of anesthesia, the patient was placed in a supine position and then draped and prepped in the usual sterile manner. A Pfannenstiel incision was made and carried down through the subcutaneous tissue to the fascia. Fascial incision was made and extended transversely. The fascia was from the underlying rectus tissue superiorly and inferiorly. The peritoneum was identified and entered. Peritoneal incision was extended longitudinally. The utero-vesical peritoneal reflection was incised transversely and the bladder flap was bluntly freed from the lower uterine segment. A low transverse uterine incision was made sharply with a scalpel and extended bluntly in a cephalocaudad direction. A significant amount of meconium stained amniotic fluid was released. An attempt was made to deliver the baby up through the hysterotomy, but difficulty encountered with this motion. Vacuum placed and repeat attempt done, but with pop off of the vacuum. At this point hysterotomy extended in a "T" fashion with aid of bandage scissors. With vacuum assistance baby boy was able to be delivered. One additional pop off did occur. After the umbilical cord was clamped and cut cord blood was obtained for evaluation. The placenta was removed intact and appeared normal. The uterus was exteriorized and cleared of clots. The uterine outline, tubes and ovaries appeared normal. The "T" portion of hysterotomy was closed first with two running suture of 0 vicryl. The serosa over this portion of the uterus was closed with a 4-0 vicryl placed in a baseball stitch fashion. The horizontal uterine incision was closed with running locked sutures of 0 Vicryl. Hemostasis was obtained with a second imbricating layer of 0 vicryl. The uterus was then placed back into the abdomen. The infracolic gutters were cleared of blood clots. The fascia was then reapproximated with running sutures of 1 PDS. The subcutaneous tissue was irrigated with sterile warm normal saline, hemostasis obtained with cautery. This layer was closed with a running 0 Vicryl. The skin was reapproximated with running Subcuticular 4-0 Monocryl sutures. Instrument, sponge, and needle counts were correct prior the abdominal closure and at the conclusion of the case.
[2019-04-04] MEDS ORDERED: Midazolam 1 MG/ML 2 ML SDV ONE ×3 (08:05→08:29)
[2019-04-04] MEDS ORDERED: fentaNYL 100 MCG/2 ML SDV ONE ×2 (08:25→08:58)
[2019-04-04] MEDS ORDERED: Phenylephrine/Normal Saline 100 MCG/ML 10 ML Syringe ONE (08:30)
[2019-04-04] MEDS ORDERED: diphenhydrAMINE 50 MG/ML SDV IVPUSH PRN ×2 (09:11→09:17)
[2019-04-04] MEDS ORDERED: Ondansetron 4 MG/2 ML SDV IVPUSH PRN (09:11)
--- NOTE | 2019-04-04 09:16 | PCM.POSTAN ---
POST ANESTHESIA ASSESSMENT - MENTAL STATUS Mental Status: Alert, Oriented - VITAL SIGNS Pulse Rate: 90 SaO2: 100 Resp Rate: 13 Blood Pressure: 113/81 Temperature: 36.6 C - RESPIRATORY Respiratory Status: Respiratory Rate WNL, Airway Patent, O2 Saturation Stable - CARDIOVASCULAR CV Status: Pulse Rate WNL, Blood Pressure Stable - GASTROINTESTINAL GI Status: No Symptoms - PAIN Pain Score: 0 - POST OP HYDRATION Hydration Status: Adequate & Stable
[2019-04-04] MEDS ORDERED: Ondansetron 4 MG/2 ML SDV IV PRN (09:17)
[2019-04-04] MEDS ORDERED: Lanolin 100% Cream 7 GM Tube TOP PRN (09:17)
[2019-04-04] MEDS ORDERED: Dextrose 5%-Lactated Ringers 1,000 ML IV SCH (09:17)
--- NOTE | 2019-04-04 09:23 | PCM.PREANE ---
Preanesthetic Assessment - Anesthesia/Transfusion/Family Hx Anesthesia History: Prior Anesthesia Without Reaction Family History of Anesthesia Reaction: No Transfusion History: No Prior Transfusion(s) - Review of Systems General: No Symptoms Pulmonary: No Symptoms Cardiovascular: No Symptoms Gastrointestinal: No Symptoms Neurological: Pre-Existing Deficit (Lower Back Pain/Sciatica) Other: Reports: None (MRSA History, Nasal swab being done with this admission. ) , Diabetes (On insulin for control. Blood Glucose was 109 mg/dl this morning. ) , Depression, Anxiety (Panic Attacks, States her anxiety is extreme. ) - Physical Assessment NPO Status Date: 04/04/19 NPO Status Time: 00:00 Pulse: 105 O2 Sat by Pulse Oximetry: 100 Respiratory Rate: 20 Blood Pressure: 128/80 Temperature: 36.7 C Vital Signs: Last Vital Signs Temp 36.6 C 04/04/19 09:16 Pulse 90 04/04/19 09:16 Resp 13 04/04/19 09:16 BP 113/81 04/04/19 09:16 Pulse Ox 100 04/04/19 09:16 Height: 1.78 m Weight: 130.317 kg ASA Class: 2 Mental Status: Alert & Oriented x3 Airway Class: Mallampati = 2 Dentition: Reports: Normal Dentition Thyro-Mental Finger Breadths: 3 Mouth Opening Finger Breadths: 3 ROM/Head Extension: Full Lungs: Clear to Auscultation, Normal Respiratory Effort Cardiovascular: Regular Rate, Regular Rhythm - Lab Values: Laboratory Last Values WBC 12.73 K/mm3 (3.98-10.04) H 04/04/19 06:00 RBC 4.77 M/mm3 (3.98-5.22) 04/04/19 06:00 Hgb 11.3 gm/L (11.2-15.7) 04/04/19 06:00 Hct 35.0 % (34.1-44.9) 04/04/19 06:00 MCV 73.4 fl (79.4-94.8) L 04/04/19 06:00 MCH 23.7 pg (25.6-32.2) L 04/04/19 06:00 MCHC 32.3 g/dl (32.2-35.5) 04/04/19 06:00 RDW Std Deviation 40.5 fL (36.4-46.3) 04/04/19 06:00 Plt Count 204 K/mm3 (182-369) 04/04/19 06:00 MPV 12.2 fl (9.4-12.3) 04/04/19 06:00 Neut % (Auto) 66.6 % (34.0-71.1) 04/04/19 06:00 Lymph % (Auto) 24.9 % (19.3-51.7) 04/04/19 06:00 [place] % (Auto) 6.7 % (4.7-12.5) 04/04/19 06:00 Eos % (Auto) 1.5 (0.7-5.8) 04/04/19 06:00 Baso % (Auto) 0.1 % (0.1-1.2) 04/04/19 06:00 Neut # (Auto) 8.49 K/mm3 (1.56-6.13) H 04/04/19 06:00 Lymph # (Auto) 3.17 K/mm3 (1.18-3.74) 04/04/19 06:00 [place] # (Auto) 0.85 K/mm3 (0.24-0.36) H 04/04/19 06:00 Eos # (Auto) 0.19 K/mm3 (0.04-0.36) 04/04/19 06:00 Baso # (Auto) 0.01 K/mm3 (0.01-0.08) 04/04/19 06:00 Manual Slide Review Abnormal smear 04/04/19 06:00 POC Glucose 109 mg/dL (70-105) H 04/04/19 07:41 Blood Type A POSITIVE 04/04/19 06:00 Gel Antibody Screen Negative 04/04/19 06:00 - Allergies Allergies/Adverse Reactions: Allergies Allergy/AdvReac Type Severity Reaction Status Date / Time No Known Allergies Allergy Verified 01/23/19 00:34 - Anesthesia Plan Pre-Op Medication Ordered: Antacids - Acknowledgements Anesthesia Type Planned: Spinal Pt an Appropriate Candidate for the Planned Anesthesia: Yes Alternatives and Risks of Anesthesia Discussed w Pt/Guardian: Yes Pt/Guardian Understands and Agrees with Anesthesia Plan: Yes PreAnesthesia Questionnaire - Past Health History Medical/Surgical History: Denies Medical/Surgical History Gastrointestinal History: Reports: GERD Other Gastrointestinal History: related to anxiety Genitourinary History: Reports: UTI, Recurrent Other Genitourinary History: with [employer] History: Reports: Other OB/BYN History: Psychiatric History: Reports: Anxiety, Depression, Panic Attack Other Psychiatric History: PPD. Pt states heat and not being able to move trigger panic attacks, states she has taken ativan for anxiety before . Endocrine/Metabolic History: Reports: Diabetes, Type II, Obesity/BMI 30+ Other Endocrine/Metabolic History: Insulin dependent Dermatologic History: Reports: Other (See Below) Other Dermatologic History: boils/cysts - Infectious Disease History Infectious Disease History: Reports: MRSA Other Infectious Disease History: last positive in 2017, open sore on buttocks - Past Surgical History Female Surgical History: Reports: Section Other Female Surgeries/Procedures: x1, 2006 - SUBSTANCE USE Smoking Status *Q: Former Smoker Tobacco Use Within Last Twelve Months: No Second Hand Smoke Exposure: No Recreational Drug Use History: No - HOME MEDS Home Medications: Home Meds Blood Sugar Diagnostic [Glucose Test Strip] 1 each MC BID #20 strip 03/11/16 [Rx ] Insulin Aspart [NovoLOG] 0 unit SQ QID 09/10/18 [History] Escitalopram [Lexapro] 10 mg PO DAILY 04/04/19 [History] Ferrous Sulfate 325 mg PO DAILY 04/04/19 [History] Insulin NPH Human Isophane [Humulin N] 0 unit SQ DAILY 04/04/19 [History] Magnesium Hydroxide [Milk of Magnesia] 30 ml PO BEDTIME PRN 04/04/19 [History] Melatonin/Pyridoxine HCl (B6) [Melatonin 3 mg Tablet] 1 tab PO BEDTIME PRN 04/04 [History] PNV95/Ferrous Fumarate/FA [ Tablet] 1 tab PO DAILY 04/04/19 [History] - CURRENT (IN HOUSE) MEDS Current Meds: Current Medications Diphenhydramine HCl (Benadryl) 25 mg IVPUSH Q6H PRN PRN Reason: Pruritis Lactated Ringer's (Ringers, Lactated) 1,000 mls @ 125 mls/hr IV ASDIRECTED RASHMI Lorazepam (Ativan) 0.5 mg IVPUSH ONETIME ONE Stop: 04/04/19 09:12 Nalbuphine HCl (Nubain) 10 mg IVPUSH Q2H PRN PRN Reason: pain Nalbuphine HCl (Nubain) 5 mg IVPUSH ONETIME PRN PRN Reason: Itching Non-Formulary Medication (Escitalopram) 10 mg PO DAILY RASHMI Ondansetron HCl (Zofran) 4 mg IVPUSH ONETIME PRN PRN Reason: Nausea/Vomiting Sodium Chloride (Saline Flush) 10 ml FLUSH ASDIRECTED PRN PRN Reason: Keep Vein Open Discontinued Medications Cefazolin Sodium (Ancef) Confirm Administered Dose 2 gm .ROUTE .STK-MED ONE Stop: 04/04/19 07:17 Cefazolin Sodium (Ancef) Confirm Administered Dose 1 gm .ROUTE .STK-MED ONE Stop: 04/04/19 08:09 Citric Acid/Sodium Citrate (Bicitra Solution) 30 ml PO ONETIME ONE Stop: 04/04/19 05:43 Last Admin: 04/04/19 06:49 Dose: 30 ml Fentanyl (Sublimaze) Confirm Administered Dose 100 mcg .ROUTE .STK-MED ONE Stop: 04/04/19 08:26 Fentanyl (Sublimaze) Confirm Administered Dose 100 mcg .ROUTE .STK-MED ONE Stop: 04/04/19 08:59 Cefazolin Sodium/Dextrose 1 gm (/ Premix) 50 mls @ 100 mls/hr IV ONETIME ONE Stop: 04/04/19 06:11 Cefazolin Sodium/Dextrose 2 gm (/ Premix) 50 mls @ 100 mls/hr IV ONETIME ONE Stop: 04/04/19 06:11 Lactated Ringer's (Ringers, Lactated) Confirm Administered Dose 2,000 mls @ as directed .ROUTE .STK-MED ONE Stop: 04/04/19 07:17 Ketorolac Tromethamine (Toradol) Confirm Administered Dose 30 mg .ROUTE .STK- MED ONE Stop: 04/04/19 07:17 Metoclopramide HCl (Reglan) 10 mg IVPUSH ONETIME ONE Stop: 04/04/19 05:43 Last Admin: 04/04/19 06:50 Dose: 10 mg Midazolam HCl (Versed 1 Mg/Ml) Confirm Administered Dose 2 mg .ROUTE .STK-MED ONE Stop: 04/04/19 08:06 Midazolam HCl (Versed 1 Mg/Ml) Confirm Administered Dose 2 mg .ROUTE .STK-MED ONE Stop: 04/04/19 08:08 Midazolam HCl (Versed 1 Mg/Ml) Confirm Administered Dose 2 mg .ROUTE .STK-MED ONE Stop: 04/04/19 08:30 Morphine Sulfate (Duramorph Pf) Confirm Administered Dose 10 mg .ROUTE .STK-MED ONE Stop: 04/04/19 07:17 Ondansetron HCl (Zofran) Confirm Administered Dose 4 mg .ROUTE .STK-MED ONE Stop: 04/04/19 07:17 Oxytocin (Pitocin) Confirm Administered Dose 20 unit .ROUTE .STK-MED ONE Stop: 04/04/19 07:17 Phenylephrine HCl (Phenylephrine In Ns 100 Mcg/Ml) Confirm Administered Dose 1 mg .ROUTE .STK-MED ONE Stop: 04/04/19 08:31
[2019-04-04] MEDS ORDERED: LORazepam 2 MG/ML SDV IVPUSH ONE ×2 (09:25→09:45)
[2019-04-04] MEDS: Insulin Isophane NPH, Human 100 Units/ML 10 ML Vial SUBCUT SCH (10:19)
[2019-04-04] MEDS: Ketorolac 30 MG/ML SDV IVPUSH SCH ×2 (14:48→21:23)
[2019-04-04] MEDS ORDERED: Insulin Lispro 100 Units/ML 3 ML Vial SUBCUT SCH (17:00)
[2019-04-04] MEDS ORDERED: Insulin Isophane NPH, Human 100 Units/ML 10 ML Vial SUBCUT SCH (21:00)
[2019-04-04] MEDS ORDERED: Sodium Chloride 0.9% 1,000 ML IV SCH (22:00)
[2019-04-05] MEDS: Acetaminophen/oxyCODONE 325-5 MG Tab PO PRN ×3 (01:26→11:14)
[2019-04-05] MEDS: Ketorolac 30 MG/ML SDV IVPUSH SCH (03:20)
[2019-04-05] MEDS: Docusate Sodium 100 MG Cap PO PRN ×2 (03:26→13:26)
--- NOTE | 2019-04-05 06:58 | PCM.PNPP ---
- General Info Date of Service: 04/05/19 Functional Status: Reports: Pain Controlled, Tolerating Diet, Ambulating - Review of Systems General: Reports: No Symptoms Pulmonary: Reports: No Symptoms Cardiovascular: Reports: No Symptoms Gastrointestinal: Reports: Abdominal Pain (managed with medications) Genitourinary: Reports: No Symptoms Musculoskeletal: Reports: No Symptoms Neurological: Reports: No Symptoms - Patient Data Vital Signs - Most Recent: Last Vital Signs Temp 36.8 C 04/05/19 03:30 Pulse 106 H 04/05/19 03:30 Resp 14 04/05/19 03:30 BP 126/73 04/05/19 03:30 Pulse Ox 96 04/05/19 03:30 Weight - Most Recent: 130.317 kg I&O - Last 24 Hours: Intake & Output 04/04/19 04/04/19 04/05/19 14:59 22:59 06:59 Intake Total 2415 1700 1600 Output Total 235 350 400 Balance 2180 1350 1200 Lab Results - Last 24 Hours: Laboratory Results - last 24 hr 04/04/19 04/04/19 04/04/19 Range/Units 06:00 06:00 07:41 WBC (3.98-10.04) K/mm3 RBC (3.98-5.22) M/mm3 Hgb (11.2-15.7) gm/L Hct (34.1-44.9) % MCV (79.4-94.8) fl MCH (25.6-32.2) pg MCHC (32.2-35.5) g/dl RDW Std Deviation (36.4-46.3) fL Plt Count (182-369) K/mm3 MPV (9.4-12.3) fl POC Glucose 109 H (70-105) mg/dL RPR Non-reactive (NONREACTIVE) Blood Type A POSITIVE Gel Antibody Screen Negative 04/04/19 04/04/19 04/04/19 Range/Units 09:19 11:26 17:40 WBC (3.98-10.04) K/mm3 RBC (3.98-5.22) M/mm3 Hgb (11.2-15.7) gm/L Hct (34.1-44.9) % MCV (79.4-94.8) fl MCH (25.6-32.2) pg MCHC (32.2-35.5) g/dl RDW Std Deviation (36.4-46.3) fL Plt Count (182-369) K/mm3 MPV (9.4-12.3) fl POC Glucose 134 H 124 H 104 (70-105) mg/dL RPR (NONREACTIVE) Blood Type Gel Antibody Screen 04/04/19 04/05/19 04/05/19 Range/Units 21:17 05:45 06:06 WBC 8.76 (3.98-10.04) K/mm3 RBC 3.86 L (3.98-5.22) M/mm3 Hgb 9.1 L D (11.2-15.7) gm/L Hct 29.0 L (34.1-44.9) % MCV 75.1 L (79.4-94.8) fl MCH 23.6 L (25.6-32.2) pg MCHC 31.4 L (32.2-35.5) g/dl RDW Std Deviation 40.5 (36.4-46.3) fL Plt Count 195 (182-369) K/mm3 MPV 11.5 (9.4-12.3) fl POC Glucose 113 H 117 H (70-105) mg/dL RPR (NONREACTIVE) Blood Type Gel Antibody Screen Med Orders - Current: Current Medications Citalopram Hydrobromide (Celexa) 20 mg PO DAILY [facility] Diphenhydramine HCl (Benadryl) 25 mg IVPUSH Q6H PRN PRN Reason: Itching or Nausea Docusate Sodium (Colace) 100 mg PO Q12H PRN PRN Reason: Constipation Last Admin: 04/05/19 03:26 Dose: 100 mg Emollient Ointment (Lansinoh Hpa) 0 gm TOP ASDIRECTED PRN PRN Reason: Sore Nipples Sodium Chloride (Normal Saline) 1,000 mls @ 200 mls/hr IV ASDIRECTED RASHMI Last Admin: 04/04/19 22:20 Dose: 200 mls/hr Ibuprofen (Motrin) 600 mg PO Q6H PRN PRN Reason: mild pain or fever Insulin Aspart (Novolog) 18 unit SUBCUT BIDMEALS [facility] Insulin Human NPH (Humulin N) 36 unit SUBCUT ACBREAKFAST [facility] Last Admin: 04/04/19 10:19 Dose: 36 units Insulin Human NPH (Humulin N) 30 unit SUBCUT BEDTIME RASHMI Last Admin: 04/04/19 23:42 Dose: 30 units Ondansetron HCl (Zofran) 4 mg IV Q8H PRN PRN Reason: Nausea/Vomiting Oxycodone/Acetaminophen (Percocet 325-5 Mg) 2 tab PO Q4H PRN PRN Reason: Pain (moderate 4-6) Last Admin: 04/05/19 06:56 Dose: 2 tab Discontinued Medications Cefazolin Sodium (Ancef) Confirm Administered Dose 2 gm .ROUTE .STK-MED ONE Stop: 04/04/19 07:17 Cefazolin Sodium (Ancef) Confirm Administered Dose 1 gm .ROUTE .STK-MED ONE Stop: 04/04/19 08:09 Citric Acid/Sodium Citrate (Bicitra Solution) 30 ml PO ONETIME ONE Stop: 04/04/19 05:43 Last Admin: 04/04/19 06:49 Dose: 30 ml Diphenhydramine HCl (Benadryl) 25 mg IVPUSH Q6H PRN PRN Reason: Pruritis Stop: 04/04/19 12:00 Fentanyl (Sublimaze) Confirm Administered Dose 100 mcg .ROUTE .STK-MED ONE Stop: 04/04/19 08:26 Fentanyl (Sublimaze) Confirm Administered Dose 100 mcg .ROUTE .STK-MED ONE Stop: 04/04/19 08:59 Cefazolin Sodium/Dextrose 1 gm (/ Premix) 50 mls @ 100 mls/hr IV ONETIME ONE Stop: 04/04/19 06:11 Last Admin: 04/04/19 13:32 Dose: Not Given Cefazolin Sodium/Dextrose 2 gm (/ Premix) 50 mls @ 100 mls/hr IV ONETIME ONE Stop: 04/04/19 06:11 Last Admin: 04/04/19 13:32 Dose: Not Given Lactated Ringer's (Ringers, Lactated) 1,000 mls @ 125 mls/hr IV ASDIRECTED [facility] Lactated Ringer's (Ringers, Lactated) Confirm Administered Dose 2,000 mls @ as directed .ROUTE .STK-MED ONE Stop: 04/04/19 07:17 Dextrose/Lactated Ringer's (Dextrose 5%-Lactated Ringers) 1,000 mls @ 125 mls/ hr IV ASDIRECTED [facility] Stop: 04/04/19 17:16 Last Admin: 04/04/19 12:13 Dose: 125 mls/hr Insulin Human Lispro (Humalog) 18 unit SUBCUT BIDMEALS [facility] Last Admin: 04/04/19 17:50 Dose: Not Given Ketorolac Tromethamine (Toradol) Confirm Administered Dose 30 mg .ROUTE .STK- MED ONE Stop: 04/04/19 07:17 Ketorolac Tromethamine (Toradol) 30 mg IVPUSH Q6H [facility] Stop: 04/05/19 03:01 Last Admin: 04/05/19 03:20 Dose: 30 mg Ketorolac Tromethamine (Toradol) Confirm Administered Dose 30 mg .ROUTE .STK- MED ONE Stop: 04/04/19 09:37 Lorazepam (Ativan) 0.5 mg IVPUSH ONETIME ONE Stop: 04/04/19 09:26 Lorazepam (Ativan) 0.5 mg IVPUSH ONETIME ONE Stop: 04/04/19 09:46 Last Admin: 04/04/19 09:36 Dose: 0.5 mg Metoclopramide HCl (Reglan) 10 mg IVPUSH ONETIME ONE Stop: 04/04/19 05:43 Last Admin: 04/04/19 06:50 Dose: 10 mg Midazolam HCl (Versed 1 Mg/Ml) Confirm Administered Dose 2 mg .ROUTE .STK-MED ONE Stop: 04/04/19 08:06 Midazolam HCl (Versed 1 Mg/Ml) Confirm Administered Dose 2 mg .ROUTE .STK-MED ONE Stop: 04/04/19 08:08 Midazolam HCl (Versed 1 Mg/Ml) Confirm Administered Dose 2 mg .ROUTE .STK-MED ONE Stop: 04/04/19 08:30 Morphine Sulfate (Duramorph Pf) Confirm Administered Dose 10 mg .ROUTE .STK-MED ONE Stop: 04/04/19 07:17 Nalbuphine HCl (Nubain) 10 mg IVPUSH Q2H PRN PRN Reason: pain Nalbuphine HCl (Nubain) 5 mg IVPUSH ONETIME PRN PRN Reason: Itching Stop: 04/04/19 12:00 Ondansetron HCl (Zofran) Confirm Administered Dose 4 mg .ROUTE .STK-MED ONE Stop: 04/04/19 07:17 Ondansetron HCl (Zofran) 4 mg IVPUSH ONETIME PRN PRN Reason: Nausea/Vomiting Stop: 04/04/19 12:00 Oxytocin (Pitocin) Confirm Administered Dose 20 unit .ROUTE .STK-MED ONE Stop: 04/04/19 07:17 Phenylephrine HCl (Phenylephrine In Ns 100 Mcg/Ml) Confirm Administered Dose 1 mg .ROUTE .STK-MED ONE Stop: 04/04/19 08:31 Sodium Chloride (Saline Flush) 10 ml FLUSH ASDIRECTED PRN PRN Reason: Keep Vein Open - Infant Interaction Disposition, : [place] in Room with Family Interaction: Holding Infant Infant Feeding: Attempted ; Nursed Fair/Poor, Bottle Fed Support Person: Other (see below) - Recovery Exam Fundal Tone: Firm Fundal Level: At Umbilicus Fundal Placement: Midline Lochia Amount: Small Lochia Color: Rubra/Red Perineum Description: Intact, Minimal Bruising/Swelling Episiotomy/Laceration: None Bladder Status: Indwelling Catheter in Place Urinary Elimination: Indwelling Catheter - Exam General: Alert, Oriented, Cooperative Lungs: Clear to Auscultation, Normal Respiratory Effort Cardiovascular: Regular Rate, Regular Rhythm GI/Abdominal Exam: Tender (appropriate post op) Extremities: Pedal Edema Skin: Warm, Dry, Intact Wound/Incisions: Healing Well, No Drainage - Problem List & Annotations (1) 37 weeks gestation of SNOMED Code(s): 43416586 Code(s): Z3A.37 - 37 WEEKS GESTATION OF Status: Acute Current Visit: Yes (2) delivery with vacuum assistance, delivered, current hospitalization SNOMED Code(s): 810864071, 031534498 Code(s): O82 - ENCOUNTER FOR DELIVERY WITHOUT INDICATION Status: Acute Current Visit: Yes (3) Anxiety SNOMED Code(s): 66911715 Code(s): F41.9 - ANXIETY DISORDER, UNSPECIFIED Status: Acute Current Visit: Yes (4) Type 2 diabetes mellitus during SNOMED Code(s): 036836816 Code(s): O24.119 - PRE-EXIST TYPE 2 DIABETES, IN , UNSP TRIMESTER Status: Acute Current Visit: Yes Qualifiers: Trimester: third trimester Qualified Code(s): O24.113 - Pre-existing type 2 diabetes mellitus, in , third trimester - Problem List Review Problem List Initiated/Reviewed/Updated: Yes - My Orders Last 24 Hours: My Active Orders 04/04/19 09:17 Activity as Tolerated [RC] .Routine Antiembolic Devices [RC] PER UNIT ROUTINE Blood Glucose Check, Bedside [RC] WITHMEALSANDBED Communication Order [RC] PER UNIT ROUTINE Intake and Output [RC] Q4HR May Shower [RC] PER UNIT ROUTINE Notify Provider Intake and Out [RC] ASDIRECTED RT Incentive Spirometry [RC] Q2HWA Vital Signs [RC] 03,,, Acetaminophen/oxyCODONE [Percocet 325-5 MG] 2 tab PO Q4H PRN Docusate Sodium [Colace] 100 mg PO Q12H PRN Lanolin [Lansinoh HPA] See Dose Instructions TOP ASDIRECTED PRN Ondansetron [Zofran] 4 mg IV Q8H PRN diphenhydrAMINE [Benadryl] 25 mg IVPUSH Q6H PRN Assess Lochia [WOMSER] Per Unit Routine Assess Uterine Involution [WOMSER] Per Unit Routine Breast Pump [WOMSER] Per Unit Routine Peripheral IV Discontinue [OM.PC] Routine Sequential Compression Device [OM.PC] Per Unit Routine 04/04/19 09:30 Insulin Isophane NPH, Human [HumuLIN N] 36 unit SUBCUT ACBREAKFAST 04/04/19 21:00 Insulin Isophane NPH, Human [HumuLIN N] 30 unit SUBCUT BEDTIME 04/04/19 22:00 Sodium Chloride 0.9% [Normal Saline] 1,000 ml IV ASDIRECTED 04/04/19 Lunch Regular Diet [DIET] 04/05/19 07:00 Insulin Aspart [NovoLOG] 18 unit SUBCUT BIDMEALS 04/05/19 09:00 Citalopram [Celexa] 20 mg PO DAILY Ibuprofen [Motrin] 600 mg PO Q6H PRN 04/05/19 09:03 Urinary Catheter Removal [RC] Per Unit Routine - Assessment Assessment:: 28 y/o G2 now P2002 POD#1 from repeat (T extension) at 37 2/7 wks due to poorly controlled Type 2 DM - Plan Plan:: * NPH 36 breakfast and 30 bedtime, Novalog 18 breakfast and 18 supper. Blood sugars mostly in low 104-124 * Will follow up with PCP and cafeteria aide after delivery for blood sugar management * Continue Lexapro * Encourage breast feeding * Routine cares * Discharge in 2 days
[2019-04-05] MEDS ORDERED: INSULIN ASPART 100 UNIT/ML SUBCUT SCH (07:00)
[2019-04-05] MEDS ORDERED: Acetaminophen 325 MG Tab PO PRN (07:05)
[2019-04-05] MEDS: Insulin Isophane NPH, Human 100 Units/ML 10 ML Vial SUBCUT SCH (07:53)
[2019-04-05] MEDS ORDERED: Citalopram 20 MG Tab PO SCH (09:00)
[2019-04-05] MEDS ORDERED: Ibuprofen 600 MG Tab PO PRN (09:00)
--- NOTE | 2019-04-05 09:18 | PCM48HPAN ---
Post Anesthesia Note - EVALUATION WITHIN 48HRS OF ANESTHETIC Vital Signs in Normal Range: Yes Patient Participated in Evaluation: Yes Respiratory Function Stable: Yes Airway Patent: Yes Cardiovascular Function Stable: Yes Hydration Status Stable: Yes Pain Control Satisfactory: Yes Nausea and Vomiting Control Satisfactory: Yes Mental Status Recovered: Yes - COMMENTS/OBSERVATIONS Free Text/Narrative:: No complications noted.
[2019-04-05 11:35] VITALS: BP 117/53
--- NOTE | 2019-04-05 12:21 | PCM.DCSUM1 ---
Discharge Summary - Discharge Data Discharge Date: 04/05/19 Discharge Disposition: Home, Self-Care 01 Condition: Good - Discharge Diagnosis/Problem(s) (1) 37 weeks gestation of SNOMED Code(s): 29562397 ICD Code: Z3A.37 - 37 WEEKS GESTATION OF Status: Acute (2) delivery with vacuum assistance, delivered, current hospitalization SNOMED Code(s): 229808923, 850955745 ICD Code: O82 - ENCOUNTER FOR DELIVERY WITHOUT INDICATION Status: Acute (3) Anxiety SNOMED Code(s): 52979817 ICD Code: F41.9 - ANXIETY DISORDER, UNSPECIFIED Status: Acute (4) Type 2 diabetes mellitus during SNOMED Code(s): 574053042 ICD Code: O24.119 - PRE-EXIST TYPE 2 DIABETES, IN , UNSP TRIMESTER Status: Acute Qualifiers: Trimester: third trimester Qualified Code(s): O24.113 - Pre-existing type 2 diabetes mellitus, in , third trimester - Patient Summary/Data Operative Procedure(s) Performed: Repeat with "T" extension Complications: None Consults: None Recommended Follow-up Testing/Procedures: Follow up in 1 week for incision / mood check Send in blood sugars in 2 days Hospital Course: 28 y/o woman at 37 2/7 wks who presented for planned repeat due to poorly controlled type 2 DM. Procedure notable for a "T" extension. Otherwise surgery uncomplicated. See delivery note. Post patient's insulin regimen adjusted and she did well with appropriate blood sugar monitoring. Unfortunately on POD#1 her baby boy did require transfer to higher level of care due to difficulty in managing his blood sugars. As patient was meeting all post op goals, had appropriate drop in Hb, and was managing her blood sugars well it was felt reasonable to discharge her so she could follow her baby. She made plans to return in 1 week for post op check - Patient Instructions Diet: Regular Diet as Tolerated Activity: No Lifting Over 10 Pounds (No lifting over 10-15 pounds) Activity, Other: Pelvic rest for 6 weeks Driving: Do Not Drive (While taking narcotics ) Showering/Bathing: May Shower, No Tub Bathing/Swimming Wound/Incision Care: Keep Operative Site/Wound Site Clean and Dry Notify Provider of: Fever, Increased Pain, Swelling and Redness, Drainage, Nausea and/or Vomiting - Discharge Plan *PRESCRIPTION DRUG MONITORING PROGRAM REVIEWED*: No *COPY OF PRESCRIPTION DRUG MONITORING REPORT IN PATIENT JUNE: No Prescriptions/Med Rec: Acetaminophen/oxyCODONE [Percocet 325-5 MG] 1 - 2 tab PO Q4H PRN #20 tablet PRN Reason: Pain (Moderate 4-6) Home Medications: Home Meds Blood Sugar Diagnostic [Glucose Test Strip] 1 each MC BID #20 strip 03/11/16 [Rx ] Escitalopram [Lexapro] 10 mg PO DAILY 04/04/19 [History] Magnesium Hydroxide [Milk of Magnesia] 30 ml PO BEDTIME PRN 04/04/19 [History] Melatonin/Pyridoxine HCl (B6) [Melatonin 3 mg Tablet] 1 tab PO BEDTIME PRN 04/04 [History] PNV95/Ferrous Fumarate/FA [ Tablet] 1 tab PO DAILY 04/04/19 [History] Acetaminophen/oxyCODONE [Percocet 325-5 MG] 1 - 2 tab PO Q4H PRN #20 tablet 03/19 [Rx] Docusate Sodium [Colace] 100 mg PO Q12H PRN cap 04/05/19 [Rx] Ibuprofen [Motrin] 600 mg PO Q6H PRN tablet 04/05/19 [Rx] Insulin Aspart [NovoLOG] 18 unit SQ QID #0 04/05/19 [Rx] Insulin NPH Human Isophane [Humulin N] 30 - 36 unit SQ DAILY #0 04/05/19 [Rx] Patient Handouts: and Low Milk Supply, Delivery, Care After, Home Care Instructions for Mom, Breast Pumping Tips, [id number], Tips for a Good Latch Referrals: Liyah Bonds MD [Physician] - (1 week for post op check ) - Discharge Summary/Plan Comment DC Time >30 min.: No - Patient Data Vitals - Most Recent: Last Vital Signs Temp 36.5 C 04/05/19 08:19 Pulse 100 04/05/19 08:19 Resp 14 04/05/19 08:19 BP 117/53 L 04/05/19 08:19 Pulse Ox 99 04/05/19 08:19 Weight - Most Recent: 130.317 kg I&O - Last 24 hours: Intake & Output 04/04/19 04/05/19 04/05/19 22:59 06:59 14:59 Intake Total 1700 2100 Output Total 350 900 Balance 1350 1200 Lab Results - Last 24 hrs: Laboratory Results - last 24 hr 04/04/19 04/04/19 04/04/19 Range/Units 06:00 17:40 21:17 WBC (3.98-10.04) K/mm3 RBC (3.98-5.22) M/mm3 Hgb (11.2-15.7) gm/L Hct (34.1-44.9) % MCV (79.4-94.8) fl MCH (25.6-32.2) pg MCHC (32.2-35.5) g/dl RDW Std Deviation (36.4-46.3) fL Plt Count (182-369) K/mm3 MPV (9.4-12.3) fl POC Glucose 104 113 H (70-105) mg/dL RPR Non-reactive (NONREACTIVE) 04/05/19 04/05/19 Range/Units 05:45 06:06 WBC 8.76 (3.98-10.04) K/mm3 RBC 3.86 L (3.98-5.22) M/mm3 Hgb 9.1 L D (11.2-15.7) gm/L Hct 29.0 L (34.1-44.9) % MCV 75.1 L (79.4-94.8) fl MCH 23.6 L (25.6-32.2) pg MCHC 31.4 L (32.2-35.5) g/dl RDW Std Deviation 40.5 (36.4-46.3) fL Plt Count 195 (182-369) K/mm3 MPV 11.5 (9.4-12.3) fl POC Glucose 117 H (70-105) mg/dL RPR (NONREACTIVE) Med Orders - Current: Current Medications Acetaminophen (Tylenol) 650 mg PO Q4H PRN PRN Reason: Pain Citalopram Hydrobromide (Celexa) 20 mg PO DAILY RASHMI Last Admin: 04/05/19 10:54 Dose: Not Given Diphenhydramine HCl (Benadryl) 25 mg IVPUSH Q6H PRN PRN Reason: Itching or Nausea Docusate Sodium (Colace) 100 mg PO Q12H PRN PRN Reason: Constipation Last Admin: 04/05/19 03:26 Dose: 100 mg Emollient Ointment (Lansinoh Hpa) 0 gm TOP ASDIRECTED PRN PRN Reason: Sore Nipples Sodium Chloride (Normal Saline) 1,000 mls @ 200 mls/hr IV ASDIRECTED [facility] Last Admin: 04/04/19 22:20 Dose: 200 mls/hr Ibuprofen (Motrin) 600 mg PO Q6H PRN PRN Reason: mild pain or fever Last Admin: 04/05/19 09:30 Dose: 600 mg Insulin Aspart (Novolog) 18 unit SUBCUT BIDMEALS [facility] Last Admin: 04/05/19 08:05 Dose: 18 units Insulin Human NPH (Humulin N) 36 unit SUBCUT ACBREAKFAST [facility] Last Admin: 04/05/19 07:53 Dose: 36 units Insulin Human NPH (Humulin N) 30 unit SUBCUT BEDTIME [facility] Last Admin: 04/04/19 23:42 Dose: 30 units Ondansetron HCl (Zofran) 4 mg IV Q8H PRN PRN Reason: Nausea/Vomiting Oxycodone/Acetaminophen (Percocet 325-5 Mg) 2 tab PO Q4H PRN PRN Reason: Pain (moderate 4-6) Last Admin: 04/05/19 11:14 Dose: 2 tab Discontinued Medications Cefazolin Sodium (Ancef) Confirm Administered Dose 2 gm .ROUTE .STK-MED ONE Stop: 04/04/19 07:17 Cefazolin Sodium (Ancef) Confirm Administered Dose 1 gm .ROUTE .STK-MED ONE Stop: 04/04/19 08:09 Citric Acid/Sodium Citrate (Bicitra Solution) 30 ml PO ONETIME ONE Stop: 04/04/19 05:43 Last Admin: 04/04/19 06:49 Dose: 30 ml Diphenhydramine HCl (Benadryl) 25 mg IVPUSH Q6H PRN PRN Reason: Pruritis Stop: 04/04/19 12:00 Fentanyl (Sublimaze) Confirm Administered Dose 100 mcg .ROUTE .STK-MED ONE Stop: 04/04/19 08:26 Fentanyl (Sublimaze) Confirm Administered Dose 100 mcg .ROUTE .STK-MED ONE Stop: 04/04/19 08:59 Cefazolin Sodium/Dextrose 1 gm (/ Premix) 50 mls @ 100 mls/hr IV ONETIME ONE Stop: 04/04/19 06:11 Last Admin: 04/04/19 13:32 Dose: Not Given Cefazolin Sodium/Dextrose 2 gm (/ Premix) 50 mls @ 100 mls/hr IV ONETIME ONE Stop: 04/04/19 06:11 Last Admin: 04/04/19 13:32 Dose: Not Given Lactated Ringer's (Ringers, Lactated) 1,000 mls @ 125 mls/hr IV ASDIRECTED [facility] Lactated Ringer's (Ringers, Lactated) Confirm Administered Dose 2,000 mls @ as directed .ROUTE .STK-MED ONE Stop: 04/04/19 07:17 Dextrose/Lactated Ringer's (Dextrose 5%-Lactated Ringers) 1,000 mls @ 125 mls/ hr IV ASDIRECTED [facility] Stop: 04/04/19 17:16 Last Admin: 04/04/19 12:13 Dose: 125 mls/hr Insulin Human Lispro (Humalog) 18 unit SUBCUT BIDMEALS [facility] Last Admin: 04/04/19 17:50 Dose: Not Given Ketorolac Tromethamine (Toradol) Confirm Administered Dose 30 mg .ROUTE .STK- MED ONE Stop: 04/04/19 07:17 Ketorolac Tromethamine (Toradol) 30 mg IVPUSH Q6H [facility] Stop: 04/05/19 03:01 Last Admin: 04/05/19 03:20 Dose: 30 mg Ketorolac Tromethamine (Toradol) Confirm Administered Dose 30 mg .ROUTE .STK- MED ONE Stop: 04/04/19 09:37 Lorazepam (Ativan) 0.5 mg IVPUSH ONETIME ONE Stop: 04/04/19 09:26 Lorazepam (Ativan) 0.5 mg IVPUSH ONETIME ONE Stop: 04/04/19 09:46 Last Admin: 04/04/19 09:36 Dose: 0.5 mg Metoclopramide HCl (Reglan) 10 mg IVPUSH ONETIME ONE Stop: 04/04/19 05:43 Last Admin: 04/04/19 06:50 Dose: 10 mg Midazolam HCl (Versed 1 Mg/Ml) Confirm Administered Dose 2 mg .ROUTE .STK-MED ONE Stop: 04/04/19 08:06 Midazolam HCl (Versed 1 Mg/Ml) Confirm Administered Dose 2 mg .ROUTE .STK-MED ONE Stop: 04/04/19 08:08 Midazolam HCl (Versed 1 Mg/Ml) Confirm Administered Dose 2 mg .ROUTE .STK-MED ONE Stop: 04/04/19 08:30 Morphine Sulfate (Duramorph Pf) Confirm Administered Dose 10 mg .ROUTE .STK-MED ONE Stop: 04/04/19 07:17 Nalbuphine HCl (Nubain) 10 mg IVPUSH Q2H PRN PRN Reason: pain Nalbuphine HCl (Nubain) 5 mg IVPUSH ONETIME PRN PRN Reason: Itching Stop: 04/04/19 12:00 Ondansetron HCl (Zofran) Confirm Administered Dose 4 mg .ROUTE .STK-MED ONE Stop: 04/04/19 07:17 Ondansetron HCl (Zofran) 4 mg IVPUSH ONETIME PRN PRN Reason: Nausea/Vomiting Stop: 04/04/19 12:00 Oxytocin (Pitocin) Confirm Administered Dose 20 unit .ROUTE .STK-MED ONE Stop: 04/04/19 07:17 Phenylephrine HCl (Phenylephrine In Ns 100 Mcg/Ml) Confirm Administered Dose 1 mg .ROUTE .STK-MED ONE Stop: 04/04/19 08:31 Sodium Chloride (Saline Flush) 10 ml FLUSH ASDIRECTED PRN PRN Reason: Keep Vein Open
== END 2019-04-05 13:40 | disposition home or self-care (01) | DRG 788 ==
LOC: JD.OB 05:33
PROVIDERS: ADMIT Obstetrics & Gynecology; ATTEND Obstetrics & Gynecology
PROC: 10D00Z1 Extraction of Products of Conception, Low, Open Approach (ICD-10-PCS; principal; 2019-04-04)
PROC: 6A550ZT Pheresis of Cord Blood Stem Cells, Single (ICD-10-PCS; 2019-04-04)
DX: O24.12 Pre-existing type 2 diabetes mellitus, in childbirth (principal); E11.65 Type 2 diabetes mellitus with hyperglycemia; O77.0 Labor and delivery complicated by meconium in amniotic fluid; O69.2XX0 Labor and delivery complicated by other cord entanglement, with compression, not applicable or unspecified; O99.824 Streptococcus B carrier state complicating childbirth; F41.9 Anxiety disorder, unspecified; O99.344 Other mental disorders complicating childbirth; O34.211 Maternal care for low transverse scar from previous cesarean delivery; N85.8 Other specified noninflammatory disorders of uterus; Z3A.37 37 weeks gestation of pregnancy; Z37.0 Single live birth; Z79.4 Long term (current) use of insulin; Z87.42 Personal history of other diseases of the female genital tract; Z87.891 Personal history of nicotine dependence; O36.63X0 Maternal care for excessive fetal growth, third trimester, not applicable or unspecified
CPT/HCPCS: 01961; 36415; 59025; 82962; 85025; 85027; 86592; 86850; 86900; 86901; 94762; A9270-GY; J0690; J1815-GY; J1885; J2060; J2250; J2270; J2370; J2405; J2590; J2765; J3010; J7040; J7042; J7120

== ENCOUNTER 2020-12-30 18:29 | Emergency (ER) | payer MEDICAID ==
[2020-12-30 18:44] VITALS: BP 119/89; PULSE 145
[2020-12-30] MEDS ORDERED: Sodium Chloride 0.9% 1,000 ML IV SCH (19:15)
[2020-12-30] MEDS ORDERED: Ondansetron 4 MG/2 ML SDV IVPUSH ONE (19:15)
[2020-12-30] MEDS ORDERED: Sodium Chloride 0.9% 10 ML Syringe FLUSH PRN (19:15)
--- NOTE | 2020-12-30 19:44 | EDM.PDOC ---
ED HPI GENERAL MEDICAL PROBLEM - General Chief Complaint: Respiratory Problem Stated Complaint: SOB Time Seen by Provider: 12/30/20 18:58 Source of Information: Reports: Patient, RN Notes Reviewed - History of Present Illness INITIAL COMMENTS - FREE TEXT/NARRATIVE: 30 yr old female with onset of nausea, vomiting, chills, [place], muscle aches early this past morning about 15 hrs ago. Very occasional cough. She did have abd cramping, that is now better, still very nauseated. She did have her 2nd covid vaccine about a month ago. - Related Data Allergies Allergy/AdvReac Type Severity Reaction Status Date / Time No Known Allergies Allergy Verified 12/30/20 18:44 Home Meds: Home Meds Blood Sugar Diagnostic [Glucose Test Strip] 1 each MC BID #20 strip 03/11/16 [Rx] Escitalopram [Lexapro] 10 mg PO DAILY 04/04/19 [History] Magnesium Hydroxide [Milk of Magnesia] 30 ml PO BEDTIME PRN 04/04/19 [History] Melatonin/Pyridoxine HCl (B6) [Melatonin 3 mg Tablet] 1 tab PO BEDTIME PRN 04/04/19 [History] Pnv No.95/Ferrous Fum/Folic AC [ Tablet] 1 tab PO DAILY 04/04/19 [History] Acetaminophen/oxyCODONE [Percocet 325-5 MG] 1 - 2 tab PO Q4H PRN #20 tablet 04/05/19 [Rx] Docusate Sodium [Colace] 100 mg PO Q12H PRN cap 04/05/19 [Rx] Ibuprofen [Motrin] 600 mg PO Q6H PRN tablet 04/05/19 [Rx] Insulin Aspart [NovoLOG] 18 unit SQ QID #0 04/05/19 [Rx] Insulin NPH Human Isophane [Humulin N] 30 - 36 unit SQ DAILY #0 04/05/19 [Rx] Past Medical History - Past Health History Medical/Surgical History: Denies Medical/Surgical History Gastrointestinal History: Reports: GERD Other Gastrointestinal History: related to anxiety Genitourinary History: Reports: UTI, Recurrent Other Genitourinary History: with GATEHOUSE ATTENDANT History: Reports: Other GATEHOUSE ATTENDANT History: Psychiatric History: Reports: Anxiety, Depression, Panic Attack Other Psychiatric History: PPD. Pt states heat and not being able to move trigger panic attacks, states she has taken ativan for anxiety before . Endocrine/Metabolic History: Reports: Diabetes, Type II, Obesity/BMI 30+ Other Endocrine/Metabolic History: Insulin dependent Dermatologic History: Reports: Other (See Below) Other Dermatologic History: boils/cysts - Infectious Disease History Infectious Disease History: Reports: MRSA Other Infectious Disease History: last positive in 2017, open sore on buttocks - Past Surgical History HEENT Surgical History: Reports: Oral Surgery Female Surgical History: Reports: Section Other Female Surgeries/Procedures: x1, 2006 Social & Family History - Family History Family Medical History: No Pertinent Family History - Tobacco Use Tobacco Use Status *Q: Never Tobacco User - Caffeine Use Caffeine Use: Reports: None Other Caffeine Use: uses diet soda - Recreational Drug Use Recreational Drug Use: No - Living Situation & Occupation Living situation: Reports: (), with Family (Son) 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 Denies: Hematochezia, Melena Musculoskeletal: Reports: Other (generalized achiness) Skin: Denies: Rash ED EXAM, GI/ABD - Physical Exam Exam: See Below General Appearance: Alert, Mild Distress Throat/Mouth: Normal Inspection Head: Atraumatic Neck: Supple Respiratory/Chest: No Respiratory Distress, Lungs Clear, Normal Breath Sounds Cardiovascular: Tachycardia GI/Abdominal Exam: Soft, Non-Tender. No: Guarding Back Exam: No: CVA Tenderness (L), CVA Tenderness (R) Extremities: Normal Inspection, Normal Range of Motion Neurological: Alert, Oriented, No Motor/Sensory Deficits Skin Exam: Warm, Dry, Normal Color, No Rash Course - Vital Signs Last Recorded V/S: Last Vital Signs Temp 99.1 F 12/30/20 18:41 Pulse 145 H 12/30/20 18:41 Resp 18 12/30/20 18:41 BP 119/89 12/30/20 18:41 Pulse Ox 95 12/30/20 18:41 - Orders/Labs/Meds Labs: Laboratory Tests 12/30/20 12/30/20 12/30/20 Range/Units 18:40 19:27 19:29 Sodium 136 (136-145) mEq/L Potassium 3.6 (3.5-5.1) mEq/L Chloride 99 (98-107) mEq/L Carbon Dioxide 22 (21-32) mEq/L Anion Gap 18.6 H (5-15) BUN 12 (7-18) mg/dL Creatinine 0.8 (0.55-1.02) mg/dL Est Cr Clr Drug Dosing 109.17 mL/min Estimated GFR (MDRD) > 60 (>60) mL/min BUN/Creatinine Ratio 15.0 (14-18) Glucose 242 H (74-106) mg/dL POC Glucose 229 H (70-105) mg/dL Calcium 8.3 L (8.5-10.1) mg/dL Total Bilirubin 0.7 (0.2-1.0) mg/dL AST 15 (15-37) U/L ALT 29 (14-59) U/L Alkaline Phosphatase 94 (46-116) U/L Total Protein 7.8 (6.4-8.2) g/dl Albumin 3.5 (3.4-5.0) g/dl Globulin 4.3 gm/dL Albumin/Globulin Ratio 0.8 L (1-2) SARS-CoV-2 RNA (LEVI) Negative (NEGATIVE) Meds: Medications Discontinued Medications Generic Name Dose Route Start Last Admin Trade Name Freq PRN Reason Stop Dose Admin Acetaminophen 975 mg 12/30/20 19:51 12/30/20 19:54 Tylenol PO 12/30/20 19:52 975 mg NOW ONE Administration Sodium Chloride 1,000 mls @ 999 mls/hr 12/30/20 19:15 12/30/20 19:30 Normal Saline IV 999 mls/hr ONETIME RASHMI Administration Lactated Ringer's 1,000 mls @ 999 mls/hr 12/30/20 20:17 12/30/20 20:31 Ringers, Lactated IV 12/30/20 21:17 999 mls/hr .BOLUS ONE Administration Ondansetron HCl 4 mg 12/30/20 19:15 12/30/20 19:30 Zofran IVPUSH 12/30/20 19:16 4 mg ONETIME ONE Administration Sodium Chloride 10 ml 12/30/20 19:15 12/30/20 19:35 Saline Flush FLUSH 10 ml ASDIRECTED PRN Administration Keep Vein Open - Re-Assessments/Exams Free Text/Narrative Re-Assessment/Exam: 12/30/20 21:01 CXR nl, covid neg. anion gap elevated, moderately dehydrated as expected. Have given 1 liter NS, will give a liter LR before discharge. Departure - Departure Time of Disposition: 21:25 Disposition: Home, Self-Care 01 Condition: Fair Clinical Impression: Dehydration Vomiting Qualifiers: Vomiting type: unspecified Vomiting Intractability: non-intractable Nausea presence: with nausea Qualified Code(s): R11.2 - Nausea with vomiting, unspecified Diarrhea Qualifiers: Diarrhea type: unspecified type Qualified Code(s): R19.7 - Diarrhea, unspecified - Discharge Information Instructions: Nausea and Vomiting, Adult, [id number] Referrals: Martha Main PA-C [Primary Care Provider] - Forms: ED Department Discharge, ED Return to Work/School Form Additional Instructions: Clear liquids until AM, than very careful bland diet as tolerated. Probiotic twice daily will help you get over the diarrhea more quickly. Off work tomorrow, return to work Weds. as tolerated. Follow up clinic as needed if symptoms not resolving as expected. Sepsis Event Note (ED) - Evaluation Sepsis Screening Result: Possible Sepsis Risk
[2020-12-30] MEDS ORDERED: Acetaminophen 325 MG Tab PO ONE (19:51)
[2020-12-30] MEDS ORDERED: Lactated Ringers 1,000 ML IV ONE (20:17)
--- NOTE | 2020-12-30 20:30 | CR ---
Chest: Portable view of the chest was obtained. Comparison: Prior chest x-ray 12/06/17. Heart size and mediastinum are normal. Lungs are clear with no acute parenchymal change. No acute osseous finding is seen. Impression: 1. Nothing acute is seen on portable chest x-ray. Diagnostic code #1
== END 2020-12-30 21:50 | disposition home or self-care (01) ==
LOC: JD.ED 18:29
DX: E86.0 Dehydration (principal); R11.2 Nausea with vomiting, unspecified; R19.7 Diarrhea, unspecified; E11.9 Type 2 diabetes mellitus without complications; E66.9 Obesity, unspecified; Z68.41 Body mass index [BMI] 40.0-44.9, adult; Z79.4 Long term (current) use of insulin; Z79.899 Other long term (current) drug therapy; Z20.822 Contact with and (suspected) exposure to COVID-19
CPT/HCPCS: 36415; 71045; 80053; 82962; 87635; 96374; 99285; A9270; J2405; J7030; J7120; 99284; U0002

== ENCOUNTER 2023-04-04 19:52 | Emergency (ER) | payer MEDICAID ==
[2023-04-04 20:02] VITALS: BP 157/112; PULSE 118
== END 2023-04-04 20:42 | disposition home or self-care (01) ==
LOC: JD.ED 19:52
DX: U07.1 COVID-19 (principal); E11.9 Type 2 diabetes mellitus without complications; E66.9 Obesity, unspecified; Z68.41 Body mass index [BMI] 40.0-44.9, adult; Z79.4 Long term (current) use of insulin; Z79.899 Other long term (current) drug therapy
CPT/HCPCS: 99283

== ENCOUNTER 2025-08-15 23:35 | Emergency (ER) | payer BC, MEDICAID ==
[2025-08-15] MEDS ORDERED: Sodium Chloride 0.9% 10 ML Syringe FLUSH PRN (23:56)
[2025-08-16 00:16] LABS: BASOPHILS ABSOLUTE AUTO 0.0 K/mm3 (0.0-0.2); BASOPHILS PERCENT AUTO 0.2 % (0.0-1.0); EOSINOPHILS ABSOLUTE AUTO 0.1 K/mm3 (0.0-0.4); EOSINOPHILS PERCENT AUTO 0.7 % (0.0-6.0); IMMATURE GRAN ABSOLUTE AUTO 0.02 K/mm3 (0.00-0.05); IMMATURE GRAN PERCENT AUTO 0.2 % (0.0-0.4); LYMPHOCYTES ABSOLUTE AUTO 4.7 K/mm3 (1.0-4.8); LYMPHOCYTES PERCENT AUTO 44.5 % (24.0-44.0); MEAN PLATELET VOLUME 11.1 fl (9.4-12.3); MONOCYTES ABSOLUTE AUTO 0.5 K/mm3 (0.0-0.8); MONOCYTES PERCENT AUTO 5.2 % (0.0-8.0); NEUTROPHILS ABSOLUTE AUTO 5.2 K/mm3 (1.8-7.7); NEUTROPHILS PERCENT AUTO 49.2 % (41.0-71.0); NRBC ABSOLUTE 0.00 (0.00-0.02); NRBC PERCENT 0.0 % (0.0-0.2); PLATELET COUNT,PLT 242 K/mm3 (150-400); RED BLOOD CELL COUNT 5.26 M/mm3 (4.10-5.30); WHITE BLOOD CELL COUNT,WBC 10.47 K/mm3 (3.9-11.3)
[2025-08-16] MEDS: Ondansetron 4 MG/2 ML SDV IVPUSH ONE (00:19)
[2025-08-16 00:32] LABS: APPEARANCE,URINE CLEAR (Clear); GLUCOSE,URINE NEGATIVE (Negative); OCCULT BLOOD,URINE NEGATIVE (Negative)
[2025-08-16] MEDS: LORazepam 2 MG/ML SDV IVPUSH ONE (00:38)
[2025-08-16] MEDS: Iopamidol 612 MG/ML 100 ML Bottle IVPUSH ONE (01:00)
[2025-08-16 04:07] VITALS: BP 124/75; PULSE 72
[2025-08-18 11:42] LABS: HAV AB IGM Negative (Negative); HBC IGM Negative (Negative); HEP B SURG AG Negative (Negative); HEP C AB BY CIA Negative (Negative); HEP C AB BY CIA INDEX 0.11 IV
== END 2025-08-16 04:45 | disposition home or self-care (01) ==
LOC: JD.ED 23:35
DX: K80.50 Calculus of bile duct without cholangitis or cholecystitis without obstruction (principal); R94.5 Abnormal results of liver function studies; E11.9 Type 2 diabetes mellitus without complications; E66.9 Obesity, unspecified; Z68.34 Body mass index [BMI] 34.0-34.9, adult; Z79.4 Long term (current) use of insulin; Z79.899 Other long term (current) drug therapy
CPT/HCPCS: 36415; 74177; 76705; 80053; 80074; 81003; 83605; 83690; 83735; 84484; 84703; 85025; 93005; 96361; 96374; 96375; 96376; 99284; J1171; J2060; J2405; J7030; Q9967; 93010

== ENCOUNTER 2025-09-06 10:33 | Day surgery (SDC) | payer BC ==
[~2025-09-06 10:33] MED LIST: Sodium Chloride 0.9% 10 ML Syringe FLUSH PRN; Sodium Chloride 0.9% 10 ML Syringe FLUSH SCH
[2025-09-06] MEDS ORDERED: dexmedeTOMIDine HCl 200 MCG/2 ML SDV ONE (11:22)
[2025-09-06] MEDS ORDERED: Midazolam 1 MG/ML 2 ML SDV ONE (11:22)
[2025-09-06] MEDS: Lactated Ringers 1,000 ML IV SCH (11:25)
[2025-09-06] MEDS ORDERED: propofoL 1,000 MG/100 ML 100 ML ONE (11:41)
[2025-09-06] MEDS ORDERED: propofoL 500 MG/50 ML 50 ML ONE ×2 (11:42→13:17)
[2025-09-06] MEDS ORDERED: fentaNYL 250 MCG/5 ML SDV ONE (11:42)
[2025-09-06] MEDS ORDERED: Ondansetron 4 MG/2 ML SDV ONE (11:47)
[2025-09-06] MEDS ORDERED: Ketamine HCL/NACL, ISO-OSM 50 MG/5 ML Syringe ONE (12:38)
[2025-09-06] MEDS ORDERED: Lactated Ringers 1,000 ML ONE (12:40)
[2025-09-06] MEDS: EPINEPHrine 1 MG/ML SDV ONE (12:40)
[2025-09-06] MEDS ORDERED: Dexamethasone 4 MG/ML 5 ML MDV ONE (13:01)
[2025-09-06] MEDS: Iopamidol 612 MG/ML 30 ML SDV ONE (13:10)
[2025-09-06] MEDS ORDERED: Sodium Chloride 0.9% 50 ML SDV ONE (13:15)
[2025-09-06] MEDS ORDERED: Ketorolac 30 MG/ML SDV ONE (13:34)
[2025-09-06 13:55] LABS: BASOPHILS ABSOLUTE AUTO 0.0 K/mm3 (0.0-0.2); BASOPHILS PERCENT AUTO 0.3 % (0.0-1.0); EOSINOPHILS ABSOLUTE AUTO 0.1 K/mm3 (0.0-0.4); EOSINOPHILS PERCENT AUTO 0.8 % (0.0-6.0); IMMATURE GRAN ABSOLUTE AUTO 0.02 K/mm3 (0.00-0.05); IMMATURE GRAN PERCENT AUTO 0.3 % (0.0-0.4); LYMPHOCYTES ABSOLUTE AUTO 3.4 K/mm3 (1.0-4.8); LYMPHOCYTES PERCENT AUTO 47.2 % (24.0-44.0); MEAN PLATELET VOLUME 11.2 fl (9.4-12.3); MONOCYTES ABSOLUTE AUTO 0.5 K/mm3 (0.0-0.8); MONOCYTES PERCENT AUTO 6.5 % (0.0-8.0); NEUTROPHILS ABSOLUTE AUTO 3.2 K/mm3 (1.8-7.7); NEUTROPHILS PERCENT AUTO 44.9 % (41.0-71.0); NRBC ABSOLUTE 0.00 (0.00-0.02); NRBC PERCENT 0.0 % (0.0-0.2); PLATELET COUNT,PLT 200 K/mm3 (150-400); RED BLOOD CELL COUNT 4.75 M/mm3 (4.10-5.30); WHITE BLOOD CELL COUNT,WBC 7.20 K/mm3 (3.9-11.3)
[2025-09-06] MEDS: fentaNYL 100 MCG/2 ML SDV IVPUSH PRN (13:56)
[2025-09-06] MEDS: droPERidol 2.5 MG/ML SDV IV PRN (14:08)
[2025-09-06] MEDS ORDERED: LORazepam 2 MG/ML SDV IM ONE (14:10)
[2025-09-06 14:22] LABS: A/G RATIO 0.9 (1-2); ALANINE AMINOTRANSFERASE,ALT 43.0 U/L (14-59); ASPARTATE AMNIOTRANSFERASE,AST 45.0 U/L (15-37); BILIRUBIN TOTAL 0.5 mg/dL (0.2-1.0); BLOOD UREA NITROGEN,BUN 11.0 mg/dL (7-18); CARBON DIOXIDE,CO2 25.0 mEq/L (21-32); CHLORIDE,CL 104.0 mEq/L (98-107); CREATININE 0.6 mg/dL (0.55-1.02); EST CRCL DRUG DOSING (CG) 140.17 mL/min; ESTIMATED GFR 119.0 mL/min (>60); PROTEIN TOTAL,TP 6.6 g/dl (6.4-8.2); SODIUM,NA 139.0 mEq/L (136-145)
[2025-09-06] MEDS ORDERED: Midazolam 1 MG/ML 5 ML SDV ONE (14:30)
[2025-09-06 14:38] LABS: GLUCOSE RANDOM 156.0 mg/dL (70-99)
[2025-09-06 14:40] LABS: BILIRUBIN DIRECT 0.2 mg/dl (0.0-0.2); POTASSIUM,K 3.5 mEq/L (3.5-5.1)
[2025-09-06 16:53] VITALS: BP 111/72; PULSE 79
== END 2025-09-06 16:34 ==
LOC: JD.SDS 10:33
PROVIDERS: ATTEND Surgery
DX: K80.64 Calculus of gallbladder and bile duct with chronic cholecystitis without obstruction (principal); R16.0 Hepatomegaly, not elsewhere classified; E11.9 Type 2 diabetes mellitus without complications; E66.9 Obesity, unspecified; Z79.4 Long term (current) use of insulin; Z68.34 Body mass index [BMI] 34.0-34.9, adult; Z87.891 Personal history of nicotine dependence; Z79.899 Other long term (current) drug therapy
CPT/HCPCS: 00790; 01922; 36415; 74181; 74181-26; 74300; 74300-26; 80053; 82248; 82947; 83690; 85025; J0169; J0665; J0690; J1100; J1171; J1790; J1885; J2003; J2250; J2405; J2704; J3010; J3490; J7120; Q9967